=== PATIENT | male | born 1985 | race Caucasian/White ===

== ENCOUNTER → 2018-03-02 | Outpatient (REF) | payer OTHER ==
[2018-03-02 14:07] LABS: INR 1.09; PROTHROMBIN TIME 14.2 SECONDS (12.1-14.4)
[2018-03-02 14:08] LABS: PARTIAL THROMBOPLASTIN TIME 37.6 SECONDS (25.4-37.6)
[2018-03-02 14:14] LABS: REASON FOR REVIEW PLATELET MORPHOLOGY; SLIDE REVIEW Report; SOURCE PERIPHERAL SMEAR
[2018-03-02 14:43] LABS: VITAMIN B12 LEVEL 700 PG/ML (247-911)
[2018-03-03 11:00] LABS: HIV 1&2 SCREEN CENTAUR NEGATIVE (NEGATIVE)
[2018-03-03 11:00] LABS: HEPATITIS C VIRUS ABY INDEX 0.2 INDEX (<0.8)
== END ==
LOC: M LAB REF 13:17
DX: D69.6 Thrombocytopenia, unspecified (principal); R94.5 Abnormal results of liver function studies

== ENCOUNTER → 2018-03-07 | Outpatient (REF) | payer OTHER | LOC: M LAB REF 13:37 | DX: D69.6 Thrombocytopenia, unspecified (principal); R94.5 Abnormal results of liver function studies; R16.0 Hepatomegaly, not elsewhere classified ==

== ENCOUNTER 2019-01-04 11:50 | Inpatient (IN) | payer OTHER ==
[~2019-01-04] VITALS: Ht 170.2 cm; Wt 81.2 kg
[2019-01-04] MEDS: FOLIC ACID 1 MG TAB PO SCH (09:00)
[2019-01-04] MEDS: MULTIVITAMINS/MINERALS THERAP 1 TAB PO SCH (09:00)
[~2019-01-04 11:50] MED LIST: VENTAER INH
[2019-01-04] MEDS ORDERED: ALBU8.5H (12:21)
[2019-01-04] MEDS ORDERED: INCR1INH (12:21)
[2019-01-04] MEDS ORDERED: FOLI1TAB11 (12:21)
[2019-01-04] MEDS ORDERED: SPIR100T3 (12:21)
[2019-01-04] MEDS ORDERED: SPIR-10 (12:21)
[2019-01-04] MEDS ORDERED: FURO40TA2 (12:21)
[2019-01-04] MEDS ORDERED: LACT10SO3 (12:21)
[2019-01-04] MEDS ORDERED: PANT40TA3 (12:21)
[2019-01-04] MEDS ORDERED: GABA-1171 (12:21)
[2019-01-04] MEDS ORDERED: METH4TAB28 (12:21)
[2019-01-04] MEDS ORDERED: LORazepam 2 MG TAB PO PRN ×2 (12:45→15:45)
[2019-01-04 13:04] LABS: VENOUS BASE EXCESS 1.4 (-2.0-2.0); VENOUS HCO3 25.5 MEQ/L (23.0-27.0); VENOUS O2 SATURATION 90.1 % (60.0-80.0); VENOUS PARTIAL PRESSURE CO2 38.9 mmHg (38.0-50.0); VENOUS PARTIAL PRESSURE O2 63.1 mmHg (30.0-50.0); VENOUS PH 7.435 UNITS (7.330-7.430); VENOUS STANDARD HCO3 25.5 MEQ/L; VENOUS TOTAL CO2 26.7 MEQ/L (24.0-28.0)
[2019-01-04 13:13] LABS: BASO % 0.5 % (0.0-1.0); EOS # 0.1 10^3/uL (0.0-0.50); HEMATOCRIT 37.5 % (42.0-52.0); LYMPH # 2.3 10^3/uL (1.5-4.5); LYMPH % 37.8 % (24.0-44.0); MEAN CORPUSCULAR HEMOGLOBIN 35.3 pg (27.0-33.0); MEAN CORPUSCULAR HGB CONC 34.7 g/dl (32.0-36.5); MEAN CORPUSCULAR VOLUME 101.9 fl (80.0-96.0); MONO # 0.7 10^3/uL (0.0-0.8); MONO % 12.1 % (0.0-5.0); NEUTROPHILS # 2.8 10^3/uL (1.8-7.7); NEUTROPHILS % 47.1 % (36.0-66.0); RED BLOOD COUNT 3.68 10^6/uL (4.30-6.10)
[2019-01-04 13:27] LABS: INR 1.74; PROTHROMBIN TIME 20.6 SECONDS (12.1-14.4)
[2019-01-04 13:28] LABS: PARTIAL THROMBOPLASTIN TIME 44.2 SECONDS (25.4-37.6)
[2019-01-04] MEDS ORDERED: SPIR100T3 PO (13:33)
[2019-01-04] MEDS ORDERED: FURO40TA2 PO (13:33)
[2019-01-04] MEDS ORDERED: RA M200C4 PO (13:33)
[2019-01-04] MEDS ORDERED: PANT40TA3 PO (13:33)
[2019-01-04] MEDS ORDERED: GABA-1171 PO (13:33)
[2019-01-04] MEDS ORDERED: PROAAER10 INH (13:33)
[2019-01-04 13:48] LABS: ACETAMINOPHEN LEVEL < 2.0 UG/ML (10.0-30.0); ALBUMIN 1.9 GM/DL (3.2-5.2); ALT/SGPT 27 U/L (12-78); AMYLASE 55 U/L (25-115); BILIRUBIN,DIRECT 3.1 MG/DL (0.0-0.2); BILIRUBIN,TOTAL 4.9 MG/DL (0.2-1.0); BLOOD UREA NITROGEN 3 MG/DL (7-18); CALCIUM LEVEL 7.5 MG/DL (8.5-10.1); CARBON DIOXIDE LEVEL 26 MEQ/L (21-32); CHLORIDE LEVEL 106 MEQ/L (98-107); CREATININE FOR GFR 0.39 MG/DL (0.70-1.30); ETHYL ALCOHOL (ETHANOL) 0.297 % (0.000-0.010); GLOMERULAR FILTRATION RATE > 60.0 (>60); GLUCOSE, FASTING 105 MG/DL (70-100); LIPASE 370 U/L (73-393); POTASSIUM SERUM 3.7 MEQ/L (3.5-5.1); SALICYLATE LEVEL < 1.7 MG/DL (5.0-30.0); SODIUM LEVEL 140 MEQ/L (136-145); TOTAL PROTEIN 7.6 GM/DL (6.4-8.2)
[2019-01-04] MEDS: THIAMINE 100 MG TAB PO SCH ×2 (13:52→21:32)
[2019-01-04 14:03] LABS: PLATELET COUNT, AUTOMATED 78 10^3/uL (150-450)
--- NOTE | 2019-01-04 15:27 | HPEPDOC ---
[facility] Medical History & Physical History and Physical DATE OF ADMISSION 01/04/[address] salbador Sahu FIRE POT OPERATOR Dr. Grullon CHIEF COMPLAINT: Sent to ER by draw machine operator HISTORY OF PRESENT ILLNESS: Patient is a 33-year-old man with a history of easy bruising has undergone extensive outpatient work up to the hematology office for thrombocytopenia. [place] to be secondary thrombocytopenia, related to excessive alcohol abuse and liver disease secondary to this. The patient had vomited ascites and was seen by his draw machine operator yesterday who referred him to the emergency room and suggested a diagnostic paracentesis. The patient was reluctan t present and did go home and was intoxicated drinking alcohol last night. He does admit to significant alcohol intake every day. He does not know the last time he went 3 days without drinking he's been doing so for 7 years. He tells me that his sister also has liver problems but she drinks as well and that his father had liver problems as well and he secondary to cardiac disease. At the time of my exam the patient is intoxicated PAST MEDICAL HISTORY: 1. Secondary thrombocytopenia. 2. Gastroesophageal reflux disease. 3. Asthma. HOME MEDICATIONS: Please see below. ALLERGIES: please see below PAST SURGICAL HISTORY: 1. Colonoscopy which was fairly unremarkable. SOCIAL HISTORY: Lives with: His brother, Employment: Unemployed not in school, Tobacco use: Half a pack for the last 2 years. ETOH: As outlined above significant unable to quantify the last 7 years, Illicit drug use: Denies, Tattoos done unprofessionally: Denies. IV drug use: Denies CODE STATUS: Full code FAMILY HISTORY:Reviewed and noncontributory REVIEW OF SYSTEMS: CONSTITUTIONAL: Denies weight loss in fact weight gain, night sweats, fatigue malaise HEENT: Denies visual changes headache ringing in the ear sore throat. CARDIOVASCULAR: Denies chest pain shortness of breath PND orthopnea, positive for edema. RESPIRATORY: Denies cough as sputum wheeze hemoptysis. GASTROINTESTINAL: Positive for abdominal pain denies changes in his urine nausea vomiting diarrhea. GENITOURINARY: Denies incontinence frequency and dysuria otherwise has been started on diuretic. SKIN: Denies pruritus rash and dryness open wounds. MUSCULOSKELETAL: Denies muscle aches weakness or worsening arthritis. NEUROLOGICAL: Patient denies seizures paresthesias or paralysis gait instability. PSYCHIATRIC: Patient denies anxiety difficulty with concentration and anhedonia and depression energy. But does admit a history of depression ENDOCRINE: Patient denies cold or heat intolerance, changes in appetite, hair loss. HEMATOLOGIC/LYMPHATIC: Positive for easy bruising. PHYSICAL EXAMINATION: VITAL SIGNS: Temperature 98 6, pulse 98, respiratory rate 18, blood pressure 142/79, pulse oximetry 95 % on room air. GENERAL: Pleasant sitting up in bed sleepy difficult to engage in conversation he is visibly intoxicated HEENT: Moist mucous membranes no elevation and CVP, breath is malodorous CARDIOVASCULAR: S1 S2 regular no additional heart sounds appreciated. RESPIRATORY: Clear to auscultation bilaterally. ABDOMINAL: Bowel sounds present abdomen soft and diffusely tender to palpation, positive shifting dullness and fluid wave EXTREMITIES: No clubbing cyanosis, positive for trace edema bilaterally NEUROLOGICAL: Spontaneously moves all 4 extremities cranial 2 through 12 grossly intact no gross focal deficits appreciated PSYCHOLOGICAL: Appropriate LABORATORY DATA: See below. MICROBIOLOGY: Please see below. ASSESSMENT: This is a 33-year-old man with alcoholic liver cirrhosis. .PLAN: 1.Liver cirrhosis: In all likelihood secondary to alcoholism although it is a relatively early onset given his assessment intake over the last 7 years I suspect that this is the etiology. Certainly other etiologies could be entertain ed he does have a sister with liver disease as well and although she isn't a drinker disconcertingly be secondary etiology I will send a broad workup and returned to gastroenterology, as well as complete diagnostic paracentesis as intention. His platelets are both 50 his INR is elevated at 1.7 however he has been drinking I suspect that over the next 24 hours upon recycling his labs and being away from alcohol briefly these may improve. He is oriented and started on Lasix and spironolactone combination 2. Alcohol abuse: Cessation counseling provided with left to monitor him closely for alcohol withdrawal symptoms as he was scoring. We'll provide him with folic acid thiamine and multivitamin 3. Gastroesophageal reflux disease: Continue with PPI 4.Chronic pain: Continue with gabapentin DVT PROPHYLAXIS: Sequentials teds no pharmacological agents in the setting of thrombocytopenia DISPOSITION: Admitted to the medical surgical floor PROGNOSIS: Long-term appears to be quite poor unless he can cease further alcohol intake Vital Signs Vital Signs Date Time Temp Pulse Resp B/P (MAP) Pulse Ox O2 Delivery O2 Flow Rate FiO2 01/04/19 14:19 98 18 95 Room Air 01/04/19 14:00 142/79 (100) 01/04/19 11:51 98.6 Laboratory Data Labs 24H Laboratory Tests 2 01/04/19 12:41: Immature Granulocyte % (Auto) 0.5, White Blood Count 6.0, Red Blood Count 3.68L, Hemoglobin 13.0L, Hematocrit 37.5L, Mean Corpuscular Volume 101.9H, Mean Corpuscular Hemoglobin 35.3H, Mean Corpuscular Hemoglobin Concent 34.7, Red Cell Distribution Width 14.5, Platelet Count 78L, Neutrophils (%) (Auto) 47.1, Lymphocytes (%) (Auto) 37.8, Monocytes (%) (Auto) 12.1H, Eosinophils (%) (Auto) 2.0, Basophils (%) (Auto) 0.5, Neutrophils # (Auto) 2.8, Lymphocytes # (Auto) 2.3, Monocytes # (Auto) 0.7, Eosinophils # (Auto) 0.1, Basophils # (Auto) 0.0, Nucleated Red Blood Cells % (auto) 0.0, Immature Platelet Fraction 2.6, Prothrombin Time 20.6H, Prothromb Time International Ratio 1.74, Activated Part ial Thromboplast Time 44.2H, Blood Gas Bicarbonate Standard 25.5, Venous Blood pH 7.435H, Venous Blood Partial Pressure CO2 38.9, Venous Blood Partial Pressure O2 63.1H, Venous Blood Total Carbon Dioxide 26.7, Venous Blood HCO3 25.5, Venous Blood Oxygen Saturation 90.1H, Venous Blood Base Excess 1.4, Anion Gap 8, Glomerular Filtration Rate > 60.0, Calcium Level 7.5L, Aspartate Amino Transf (AST/SGOT) 83H, Alanine Aminotransferase (ALT/SGPT) 27, Alkaline Phosphatase 194H, Total Bilirubin 4.9H, Direct Bilirubin 3.1H, Ammonia 23, Total Protein 7.6, Albumin 1.9L, Albumin/Globulin Ratio 0.33L, Amylase Level 55, Lipase 370, Thyroid Stimulating Hormone (TSH) 2.920, Salicylates Level < 1.7L, Acetaminophen Level < 2.0L, Ethyl Alcohol Level 0.297H 01/04/19 12:43: Bedside Glucose (Misc Panel) 107H CBC/BMP Laboratory Tests 01/04/19 12:41 Red Blood Count 3.68 L, Mean Corpuscular Volume 101.9 H, Mean Corpuscular Hemoglobin 35.3 H, Mean Corpuscular Hemoglobin Concent 34.7, Red Cell Distribution Width 14.5, Neutrophils (%) (Auto) 47.1, Lymphocytes (%) (Auto) 37.8, Monocytes (%) (Auto) 12.1 H, Eosinophils (%) (Auto) 2.0, Basophils (%) (Auto) 0.5, Neutrophils # (Auto) 2.8, Lymphocytes # (Auto) 2.3, Monocytes # (Auto) 0.7, Eosinophils # (Auto) 0.1, Basophils # (Auto) 0.0 Home Medications Scheduled Furosemide (Furosemide) 40 Mg Tablet, 40 MG PO DAILY Gabapentin (Gabapentin) 100 Mg Capsule, 100 MG PO BID Milk Thistle Seed Extract (Milk Thistle) 200 Mg Capsule, 200 MG PO DAILY Pantoprazole Sodium (Pantoprazole Sodium) 40 Mg Tablet.dr, 40 MG PO DAILY Spironolactone (Spironolactone) 100 Mg Tablet, 100 MG PO DAILY Scheduled PRN Albuterol Sulfate (Proair Hfa) 8.5 Gm Hfa.aer.ad, 2 PUFF INH Q4H PRN for SHORTNESS OF BREATH Allergies Coded Allergies: No Known Allergies (Unverified , 12/18/18) A-FIB/CHADSVASC A-FIB History Current/History of A-Fib/PAF?: No Current Oral Anticoagulant The: JOSE ARMANDO Baldwin MD January 04, 2019 15:27
[2019-01-04 15:37] LABS: AMPHETAMINES LEVEL URINE NEGATIVE (NEGATIVE); BARBITURATES URINE NEGATIVE (NEGATIVE); BENZODIAZEPINES URINE NEGATIVE (NEGATIVE); CANNABINOIDS URINE NEGATIVE (NEGATIVE); COCAINE METABOLITE URINE NEGATIVE (NEGATIVE); METHADONE URINE NEGATIVE (NEGATIVE); OPIATES URINE NEGATIVE (NEGATIVE); PHENCYCLIDINE URINE NEGATIVE (NEGATIVE)
[2019-01-04 16:55] VITALS: BP 137/93
[2019-01-04] MEDS: SPIRONOLACTONE 50 MG TAB PO SCH (17:12)
[2019-01-04] MEDS: FUROSEMIDE 40 MG TAB PO SCH (17:13)
[2019-01-04 17:25] VITALS: BP 137/93
[2019-01-04 17:35] LABS: FERRITIN 513 NG/ML (26-388)
[2019-01-04] MEDS ORDERED: cefTRIAXone SOD 1 GM in D5W MINI-BAG PLUS 50 ML IV SCH (18:00)
[2019-01-04] MEDS ORDERED: THIAMINE 100 MG TAB PO SCH (21:00)
[2019-01-04] MEDS: GABAPENTIN 100 MG CAP PO SCH (21:32)
[2019-01-04] MEDS: LORazepam 1 MG TAB PO SCH (21:33)
[2019-01-04 22:00] VITALS: BP 131/68
[2019-01-05] MEDS: LORazepam 1 MG TAB PO SCH ×3 (05:19→21:11)
[2019-01-05 06:00] VITALS: BP_SYST 133; BP_SYST 135; BP_DIAS 71
[2019-01-05 06:36] LABS: HEMATOCRIT 31.7 % (42.0-52.0); MEAN CORPUSCULAR HGB CONC 34.4 g/dl (32.0-36.5); MEAN CORPUSCULAR VOLUME 101.9 fl (80.0-96.0); RED BLOOD COUNT 3.11 10^6/uL (4.30-6.10); WHITE BLOOD COUNT 4.8 10^3/uL (4.0-10.0)
[2019-01-05 06:42] LABS: PLATELET COUNT, AUTOMATED 64 10^3/uL (150-450)
[2019-01-05 06:44] LABS: HEMOGLOBIN 10.9 g/dl (13.5-17.5)
[2019-01-05 06:55] LABS: ALBUMIN 1.7 GM/DL (3.2-5.2); ALT/SGPT 25 U/L (12-78); BILIRUBIN,TOTAL 4.2 MG/DL (0.2-1.0); BLOOD UREA NITROGEN 3 MG/DL (7-18); CARBON DIOXIDE LEVEL 27 MEQ/L (21-32); CHLORIDE LEVEL 109 MEQ/L (98-107); CREATININE FOR GFR 0.38 MG/DL (0.70-1.30); GLOMERULAR FILTRATION RATE > 60.0 (>60); GLUCOSE, FASTING 89 MG/DL (70-100); POTASSIUM SERUM 3.8 MEQ/L (3.5-5.1); SODIUM LEVEL 141 MEQ/L (136-145); TOTAL PROTEIN 6.3 GM/DL (6.4-8.2)
[2019-01-05 08:21] LABS: INR 1.89
[2019-01-05] MEDS ORDERED: FOLIC ACID 1 MG TAB PO SCH (09:00)
[2019-01-05] MEDS ORDERED: MULTIVITAMINS/MINERALS THERAP 1 TAB PO SCH (09:00)
[2019-01-05] MEDS: PANTOPRAZOLE 40MG TAB (PROTONIX) PO SCH (11:04)
[2019-01-05] MEDS: THIAMINE 100 MG TAB PO SCH ×2 (11:04→21:11)
[2019-01-05] MEDS: MULTIVITAMINS/MINERALS THERAP 1 TAB PO SCH (11:04)
[2019-01-05] MEDS: GABAPENTIN 100 MG CAP PO SCH ×2 (11:04→21:11)
[2019-01-05] MEDS: FUROSEMIDE 40 MG TAB PO SCH (11:04)
[2019-01-05] MEDS: SPIRONOLACTONE 50 MG TAB PO SCH (11:04)
[2019-01-05] MEDS: FOLIC ACID 1 MG TAB PO SCH (11:05)
[2019-01-05 14:00] VITALS: BP 142/81
--- NOTE | 2019-01-05 14:13 | IPNPDOC ---
Date Seen The patient was seen on 01/05/19. Progress Note SUBJECTIVE: Patient tells me that his abdomen is feeling better today, it is not as painful he denies anxiety palpitations diaphoresis otherwise patient denies chest pain, shortness, breath, nausea, vomiting, fevers, chills OBJECTIVE PHYSICAL EXAMINATION: VITAL SIGNS: Please see below. GENERAL: Pleasant young man laying in bed awake alert oriented speaking in complete sentences no acute distress HEENT: Moist mucous membranes no elevation and CVP CARDIOVASCULAR: S1 S2 regular no additional heart sounds appreciated. RESPIRATORY: Clear to auscultation bilaterally. ABDOMINAL: Bowel sounds present abdomen soft and nontender, ascites shifting dullness fluid wave early [place] EXTREMITIES: No clubbing, cyanosis, trace edema NEUROLOGICAL: Spontaneously moves all 4 extremities cranial 2 through 12 grossly intact no gross focal deficits appreciated PSYCHOLOGICAL: Appropriate LABORATORY DATA, MICROBIOLOGY: Please see below. IMAGING STUDIES: Liver ultrasound pending DVT prophylaxis ordered: Sammy Segundo no pharmacological agents in the setting of thrombocytopenia ASSESSMENT: This is a 33-year-old man with alcoholic liver cirrhosis. .PLAN: 1.Liver cirrhosis: In all likelihood secondary to alcoholism. There is some concern for SBP have her symptoms do appear to be improved today we're hoping to complete a diagnostic paracentesis however his INR remains elevated this ralph pickering I did consent for blood products is aware of risks and benefits with a lengthy conversation discussing it which was witnessed for missing placement chart. USING 2 units of FFP and recheck an INR and see if he is appropriate for paracentesis at that time. His platelets are appropriate, I have discussed with gastroenterology and for the time being we are holding off on empiric and biotics appears to be quite stable and somewhat improved today 2. Alcohol abuse: Cessation counseling provided we will have to monitor him closely for alcohol withdrawal symptoms and utilize CIWA scoring. We'll provide him with folic acid thiamine and multivitamin as well as low-dose Ativan 3. Gastroesophageal reflux disease: Continue with PPI 4.Chronic pain: Continue with gabapentin DISPOSITION: Admitted to the medical surgical floor, pending paracentesis and clinical improvement PROGNOSIS: Long-term appears to be quite poor unless he can cease further alcohol intake A-FIB/CHADSVASC A-FIB History Current/History of A-Fib/PAF?: No Current Oral Anticoagulant The: No VS, I&O, 24H, Fishbone Vital Signs/I&O Vital Signs Date Time Temp Pulse Resp B/P (MAP) Pulse Ox O2 Delivery O2 Flow Rate FiO2 01/05/19 06:00 101 133/71 01/05/19 06:00 99.1 20 93 01/04/19 15:49 Room Air I&O- Last 24 Hours up to 6 AM 01/05/19 06:00 Intake Total 420 ml Output Total 1800 ml Balance -1380 ml Laboratory Data 24H LABS Laboratory Tests 2 01/05/19 06:12: Nucleated Red Blood Cells % (auto) 0.0, Anion Gap 5L, Glomerular Filtration Rate > 60.0, Blood Urea Nitrogen 3L, Creatinine 0.38L, Sodium Level 141, Potassium Level 3.8, Chloride Level 109H, Carbon Dioxide Level 27, Calcium Level 8.0L, Aspartate Amino Transf (AST/SGOT) 68H, Alanine Aminotransferase (ALT/SGPT) 25, Alkaline Phosphatase 154H, Total Bilirubin 4.2H, Total Protein 6.3L, Albumin 1.7L, Albumin/Globulin Ratio 0.37L 01/05/19 07:57: Prothrombin Time 22.0H, Prothromb Time International Ratio 1.89 CBC/BMP Laboratory Tests 01/05/19 06:12 Red Blood Count 3.11 L, Mean Corpuscular Volume 101.9 H, Mean Corpuscular Hemoglobin 35.0 H, Mean Corpuscular Hemoglobin Concent 34.4, Red Cell Distribution Width 14.6 H, Calcium Level 8.0 L, Aspartate Amino Transf (AST/SGOT) 68 H, Alanine Aminotransferase (ALT/SGPT) 25, Alkaline Phosphatase 154 H, Total Bilirubin 4.2 H, Total Protein 6.3 L, Albumin 1.7 L JOSE ARMANDO LEES MD January 05, 2019 14:13
--- NOTE | 2019-01-05 14:26 | REP ---
Complete abdominal sonography: Visceral Doppler assessment: History: Hepatitis. Morphologic findings: Scanning through the right upper quadrant of the abdomen demonstrates a contracted appearing somewhat thick-walled gallbladder without visible stone or polyp. There is ascites which is associated with spurious gallbladder wall thickening. Common bile duct is normal measuring 4.2 cm in greatest diameter. Coarse liver contour and parenchyma is seen consistent with cirrhosis. Recannulized umbilical vein is observed. No hepatic mass lesion is seen. Limited views of the pancreas show no abnormality. The spleen measures 14.9 cm in greatest diameter and is considered enlarged. No focal splenic lesion is seen. There is ascites and a left pleural effusion. The ascites is felt to be mild. Normal caliber aorta is seen. Renal cortical echogenicity pattern is normal and contours are smooth bilaterally. Right kidney measures 13.7 x 5.9 x 4.9 cm. Left renal dimensions are 12.6 x 5.9 x 6.9 cm. No hydronephrosis seen. Impression: Mild ascites. Findings consistent with cirrhosis. Mild splenomegaly. Contracted appearing thick-walled gallbladder. Otherwise negative. Visceral portal Doppler assessment: The main portal vein measures 12.6 mm in diameter. It demonstrates reversal of flow from the liver towards the justin splenic venous confluence. This is compatible with cirrhosis and portal hypertension. Recannulated umbilical vein is seen. The hepatic veins show portalization of flow pattern. Venous flow velocities in the splenic vein near its hilus of 36 cm/sec. As the splenic vein could not be seen closer to the justin splenic venous confluence technically. Portal Doppler venous flow velocity is 36.8 cm/sec. Hepatic arterial flow velocity is 0.7. Impression: Findings consistent with cirrhosis and portal hypertension. There is reverse flow in the main portal vein. The umbilical vein is recannulated. There is ascites. There is mild splenomegaly. Electronically Signed by Jono Lopez MD 01/05/2019 06:31 P
[2019-01-05] MEDS ORDERED: IPRATROPIUM 0.5MG/ALBUTEROL 2.5MG INH SOL UD 3ML (DUONEB)(J7620) NEB PRN (15:30)
[2019-01-05 17:39] LABS: APPEARANCE, BODY FLUID TURBID (CLEAR); ASCITES FL COLOR YELLOW (COLORLESS); SOURCE, BODY FLUID ASCITES; SPEC. GRAVITY BODY FLUIDS 1.012 (NOT ESTABLISHED)
[2019-01-05 18:15] LABS: SOURCE, BODY FLUID ALBUMIN ASCITES; SOURCE, BODY FLUID GLUCOSE ASCITES; SOURCE, BODY FLUID TOT PROTEIN ASCITES; TOTAL PROTEIN, BODY FLUID 1.2 G/DL (NOT ESTABLISHED)
[2019-01-05 21:00] VITALS: BP 133/70
[2019-01-05 22:00] VITALS: BP 133/70
[2019-01-05 22:34] LABS: INR 1.68; PROTHROMBIN TIME 20.1 SECONDS (12.1-14.4)
[2019-01-06] MEDS ORDERED: NICOTINE 21MG/24HR 1 EA TRANSDERMAL TD ONE (01:00)
[2019-01-06] MEDS ORDERED: IBUPROFEN 400 MG TAB PO ONE (02:15)
[2019-01-06 05:00] VITALS: BP 132/69
[2019-01-06] MEDS: LORazepam 1 MG TAB PO SCH (05:27)
[2019-01-06 06:00] VITALS: BP 132/69
[2019-01-06 06:02] LABS: HEMATOCRIT 32.5 % (42.0-52.0); HEMOGLOBIN 11.1 g/dl (13.5-17.5); MEAN CORPUSCULAR HEMOGLOBIN 34.8 pg (27.0-33.0); MEAN CORPUSCULAR HGB CONC 34.2 g/dl (32.0-36.5); MEAN CORPUSCULAR VOLUME 101.9 fl (80.0-96.0); RED BLOOD COUNT 3.19 10^6/uL (4.30-6.10); WHITE BLOOD COUNT 4.4 10^3/uL (4.0-10.0)
[2019-01-06 06:13] LABS: PLATELET COUNT, AUTOMATED 59 10^3/uL (150-450)
[2019-01-06 06:32] LABS: ALBUMIN 1.8 GM/DL (3.2-5.2); ALT/SGPT 21 U/L (12-78); BILIRUBIN,TOTAL 5.5 MG/DL (0.2-1.0); BLOOD UREA NITROGEN 6 MG/DL (7-18); CALCIUM LEVEL 7.7 MG/DL (8.5-10.1); CARBON DIOXIDE LEVEL 26 MEQ/L (21-32); CHLORIDE LEVEL 106 MEQ/L (98-107); CREATININE FOR GFR 0.47 MG/DL (0.70-1.30); GLOMERULAR FILTRATION RATE > 60.0 (>60); GLUCOSE, FASTING 104 MG/DL (70-100); POTASSIUM SERUM 3.5 MEQ/L (3.5-5.1); SODIUM LEVEL 139 MEQ/L (136-145); TOTAL PROTEIN 6.9 GM/DL (6.4-8.2)
[2019-01-06] MEDS: THIAMINE 100 MG TAB PO SCH (08:37)
[2019-01-06] MEDS: FUROSEMIDE 40 MG TAB PO SCH (08:37)
[2019-01-06] MEDS: GABAPENTIN 100 MG CAP PO SCH (08:37)
[2019-01-06] MEDS: FOLIC ACID 1 MG TAB PO SCH (08:37)
[2019-01-06] MEDS: PANTOPRAZOLE 40MG TAB (PROTONIX) PO SCH (08:37)
[2019-01-06] MEDS: MULTIVITAMINS/MINERALS THERAP 1 TAB PO SCH (08:37)
[2019-01-06] MEDS: SPIRONOLACTONE 50 MG TAB PO SCH (08:38)
[2019-01-06] MEDS ORDERED: NICOTINE 21MG/24HR 1 EA TRANSDERMAL TD SCH (09:00)
[2019-01-06] MEDS ORDERED: VITMTA PO (10:04)
[2019-01-06] MEDS ORDERED: THIA100TA PO (10:04)
[2019-01-06] MEDS ORDERED: NICO21PAT TD (10:04)
[2019-01-06] MEDS ORDERED: ATIV1TAB7 PO (10:04)
[2019-01-06] MEDS ORDERED: FOLI1TAB11 PO (10:04)
--- NOTE | 2019-01-06 10:34 | DS.PDOC ---
Discharge Summary General Date of Admission January 04, 2019 at 15:23 Date of Discharge 01/06/2019 Discharge Summary DATE OF DISCHARGE: 01/06/2019 DISCHARGE DIAGNOSIS: Alcoholic cirrhosis hepatitis with ascites SECONDARY DIAGNOSIS: 1.Alcohol abuse 2. Gastroesophageal reflux disease 3. Liver cirrhosis 4. Chronic pain PROCEDURES PERFORMED DURING STAY: Paracentesis. CONSULTANTS: Dr. Meléndez: Gastroenterology COMPLICATIONS/CHIEF COMPLAINT: Abdominal pain. HISTORY OF PRESENT ILLNESS: Patient is a 33-year-old man with a history of easy bruising has undergone extensive outpatient work up to the hematology office for thrombocytopenia. [place] to be secondary thrombocytopenia, related to excessive alcohol abuse and liver disease secondary to this. The patient had vomited ascites and was seen by his hearing dog trainer yesterday who referred him to the emergency room and suggested a diagnostic paracentesis. The patient was reluctant present and did go home and was intoxicated drinking alcohol last night. He does admit to significant alcohol intake every day. He does not know the last time he went 3 days without drinking he's been doing so for 7 years. He tells me that his sister also has liver problems but she drinks as well and that his father had liver problems as well and he secondary to cardiac disease. At the time of my exam the patient is intoxicated. HOSPITAL COURSE: Patient was admitted to the hospitalist service was provided with 2 units of FFP consent for blood products as obtained prior to this. He tolerated his transfusion well he did undergo a diagnostic paracentesis which was not suggestive of SBP however with fluid removal his abdominal symptoms did completely resolve. At this time is completely asymptomatic. He was monitored closely for evidence of alcohol withdrawal and delirium tremens he did not exhibit any such symptoms. He was provided with standing Ativan every 8 hours which was of great benefit to him and will be discharged with this as well. DISCHARGE MEDICATIONS: Please see below. ALLERGIES: Please see below. SUBJECTIVE: Patient tells me that he is feeling like a new man he has no complaints of abdominal pain and would like to go home today otherwise patient denies chest pain, shortness, breath, nausea, vomiting, fevers, chills OBJECTIVE PHYSICAL EXAMINATION: VITAL SIGNS: Please see below. GENERAL: Pleasant young man sitting up in bed awake alert oriented speaking in complete sentences no acute distress HEENT: Moist mucous membranes no elevation and CVP CARDIOVASCULAR: S1 S2 regular no additional heart sounds appreciated. RESPIRATORY: Clear to auscultation bilaterally. ABDOMINAL: Bowel sounds present abdomen soft and nontender, less distended still has some evidence of Midazolam EXTREMITIES: No clubbing, cyanosis, edema NEUROLOGICAL: Spontaneously moves all 4 extremities cranial 2 through 12 grossly intact, no gross focal deficits appreciated PSYCHOLOGICAL: Appropriate LABORATORY DATA, MICROBIOLOGY: Please see below. IMAGING STUDIES: Liver ultrasound:Mild ascites. Findings consistent with cirrhosis. Mild splenomegaly. Contracted appearing thick-walled gallbladder. Otherwise negative. Liver Doppler:Findings consistent with cirrhosis and portal hypertension. There is reverse flow in the main portal vein. The umbilical vein is recannulated. There is ascites. There is mild splenomegaly. DVT prophylaxis ordered: Sequentials and teds no pharmacological agents in the setting of thrombocytopenia ASSESSMENT: This is a 33-year-old man with alcoholic liver cirrhosis. .PLAN: 1.Liver cirrhosis: In all likelihood secondary to alcoholism. Diagnostic paracentesis has been negative for SBP his symptoms do appear to be improved today following paracentesis, I suspect his significant pain was secondary to acute alcoholic hepatitis and ascites. Since hospitalized she has been away from alcohol for greater than 24 hours and he is had some therapeutic nature to his paracentesis as well which is suspected benefit him greatly. He is at his function at baseline he is improved from the time of presentation 2. Alcohol abuse: Cessation counseling provided. The patient and I did have a fairly david discussion this morning I did inform him that if he continues to drink as has been the recent past he is likely going to drink himself to . Upon his presentation his meld score was 19 indicating a 22% 90 day mortality rate. We did monitor him closely for alcohol withdrawal symptoms and utilize CIWA scoring. He has not had significant alcohol withdrawal symptoms he has been on standing Ativan I will discharge him home with when necessary Ativan to help him with his withdrawal. We'll provide him with folic acid thiamine and multivitamin. 3. Gastroesophageal reflux disease: Continue with PPI 4.Chronic pain: Continue with gabapentin DISPOSITION: Discharged home FOLLOW UP: He is follow-up with PCP in 7 days follow-up with GI within 1 month PROGNOSIS: Long-term appears to be quite poor unless he can cease further alcohol intake ACTIVITY: As prior to admission. DIET: 2 g sodium diet DISCHARGE CONDITION: Improved and Stable. TIME SPENT ON DISCHARGE: 50 minutes Vital Signs/I&Os Vital Signs Date Time Temp Pulse Resp B/P (MAP) Pulse Ox O2 Delivery O2 Flow Rate FiO2 5/18/19 06:00 98.6 99 16 132/69 (90) 96 01/04/19 15:49 Room Air I&O- Last 24 Hours up to 6 AM 01/06/19 06:00 Intake Total 290 ml Output Total 1325 ml Balance -1035 ml Laboratory Data Labs 24H Laboratory Tests 2 01/05/19 17:05: Body Fluid Source ASCITES, Body Fluid Color YELLOW, Body Fluid Appearance TURBID, Body Fluid Specific [place] 1.012, Body Fluid WBC (Auto) 152H, Body Fluid RBC (Auto) < 2, Body Fluid Mononuclear Cells % Auto 94.1H, Fluid Polymorphonuclear Cell % Auto 5.9H, Body Fluid Glucose Source ASCITES, Body Fluid Glucose 91, Body Fluid Protein Source ASCITES, Body Fluid Total Protein 1.2, Body Fluid Albumin Source ASCITES, Body Fluid Albumin 0.4 01/05/19 22:16: Prothrombin Time 20.1H, Prothromb Time International Ratio 1.68 01/06/19 05:04: Nucleated Red Blood Cells % (auto) 0.0, Immature Platelet Fraction 3.1, Anion Gap 7L, Glomerular Filtration Rate > 60.0, Blood Urea Nitrogen 6#L, Creatinine 0.47L, Sodium Level 139, Potassium Level 3.5, Chloride Level 106, Carbon Dioxide Level 26, Calcium Level 7.7L, Aspartate Amino Transf (AST/SGOT) 60H, Alanine Aminotransferase (ALT/SGPT) 21, Alkaline Phosphatase 155H, Total Bilirubin 5.5H, Total Protein 6.9, Albumin 1.8L, Albumin/Globulin Ratio 0.35L CBC/BMP Laboratory Tests 01/06/19 05:04 Red Blood Count 3.19 L, Mean Corpuscular Volume 101.9 H, Mean Corpuscular Hemoglobin 34.8 H, Mean Corpuscular Hemoglobin Concent 34.2, Red Cell Distri bution Width 14.3, Calcium Level 7.7 L, Aspartate Amino Transf (AST/SGOT) 60 H, Alanine Aminotransferase (ALT/SGPT) 21, Alkaline Phosphatase 155 H, Total Bilirubin 5.5 H, Total Protein 6.9, Albumin 1.8 L Microbiology Microbiology 01/05/19 Gram Stain - Final, Resulted 01/05/19 Body Fluid Culture, Resulted Pending Discharge Medications Scheduled Folic Acid (Folic Acid) 1 Mg Tablet, 1 MG PO DAILY Furosemide (Furosemide) 40 Mg Tablet, 40 MG PO DAILY, (Reported) Gabapentin (Gabapentin) 100 Mg Capsule, 100 MG PO BID, (Reported) Lorazepam (Ativan) 1 Mg Tablet, 1 MG PO Q8H Milk Thistle Seed Extract (Milk Thistle) 200 Mg Capsule, 200 MG PO DAILY, (Reported) Multivitamins (Thera M Plus Tablet) 1 Each Tablet, 1 TAB PO DAILY Nicotine (Nicotine Patch) 21 Mg Patch.td24, 1 PATCH TD DAILY Pantoprazole Sodium (Pantoprazole Sodium) 40 Mg Tablet.dr, 40 MG PO DAILY, (Reported) Spironolactone (Spironolactone) 100 Mg Tablet, 100 MG PO DAILY, (Reported) Thiamine Hcl (Vitamin B-1) 100 Mg Tablet, 100 MG PO BID Scheduled PRN Albuterol Sulfate (Proair Hfa) 8.5 Gm Hfa.aer.ad, 2 PUFF INH Q4H PRN for SHORTNESS OF BREATH, (Reported) Allergies Coded Allergies: No Known Allergies (Unverified , 12/18/18) JOSE ARMANDO LEES MD January 06, 2019 10:34
[2019-01-07 00:06] LABS: ANTI-MITOCHONDRIAL ANTIBODY <20.0 Units (0.0-20.0); ANTINUCLEAR ANTIBODIES DIRECT Negative (Negative); CERULOPLASMIN 15.6 mg/dL (16.0-31.0)
--- NOTE | 2019-01-08 07:51 | REP ---
Ultrasound-guided paracentesis The procedure was performed by DEYANIRA De La Cruz, under the direct supervision of Dr. Lopez. The risks and benefits of the procedure were explained to the patient and informed consent was obtained both verbally and written. Directly prior to the start of the procedure, a formal timeout was completed in the procedure room. Under ultrasound guidance, the largest pocket of fluid in the right flank was localized and skin was marked. The skin was then prepped and draped in a sterile fashion. 10 ml of 1% lidocaine was used as a local anesthetic. Using ultrasound guidance, an 8-[place] multiphase side-hole catheter was inserted using trocar technique. 2,000 mL of cloudy yellow colored fluid was withdrawn and discarded. The patient tolerated the procedure well and there were no immediate complications. After the appropriate monitored convalescence the patient was discharged from the department. Reviewed by DEYANIRA Grier 01/05/2019 06:17 P Electronically Signed by Jono Lopez MD 01/05/2019 06:36 P
== END 2019-01-06 12:27 | disposition home or self-care (01) | DRG 280 ==
LOC: M ED 11:50 → M ED INP 15:23 → M MSPAV 16:45
PROVIDERS: ADMIT Internal Medicine; ATTEND Internal Medicine
PROC: 0W9G3ZZ Drainage of Peritoneal Cavity, Percutaneous Approach (ICD-10-PCS; principal; 2019-01-06)
DX: K70.31 Alcoholic cirrhosis of liver with ascites (principal); D69.59 Other secondary thrombocytopenia; K70.11 Alcoholic hepatitis with ascites; K21.9 Gastro-esophageal reflux disease without esophagitis; G89.29 Other chronic pain; Z79.899 Other long term (current) drug therapy; J45.909 Unspecified asthma, uncomplicated; F17.200 Nicotine dependence, unspecified, uncomplicated

== ENCOUNTER 2019-01-24 11:19 | Emergency (ER) | payer OTHER ==
[~2019-01-24] VITALS: Ht 170.2 cm; Wt 75.9 kg
[~2019-01-24 11:19] MED LIST changes: +ALBU8.5H; +ATIV1TAB7 PO; +FOLI1TAB11; +FOLI1TAB11 PO; +FURO40TA2; +FURO40TA2 PO; +GABA-1171; +GABA-1171 PO; +INCR1INH; +LACT10SO3; +METH4TAB28; +NICO21PAT TD; +PANT40TA3; +PANT40TA3 PO; +PROAAER10 INH; +RA M200C4 PO; +SPIR-10; +SPIR100T3; +SPIR100T3 PO; +THIA100TA PO; +VITMTA PO
[2019-01-24 11:20] VITALS: BP 125/71
[2019-01-24 13:55] LABS: BASO % 0.7 % (0.0-1.0); EOS # 0.1 10^3/uL (0.0-0.50); EOS % 2.3 % (0.0-3.0); HEMATOCRIT 35.9 % (42.0-52.0); HEMOGLOBIN 12.4 g/dl (13.5-17.5); LYMPH # 1.4 10^3/uL (1.5-4.5); LYMPH % 33.2 % (24.0-44.0); MEAN CORPUSCULAR HEMOGLOBIN 35.4 pg (27.0-33.0); MEAN CORPUSCULAR HGB CONC 34.5 g/dl (32.0-36.5); MEAN CORPUSCULAR VOLUME 102.6 fl (80.0-96.0); MONO # 0.4 10^3/uL (0.0-0.8); MONO % 8.4 % (0.0-5.0); NEUTROPHILS # 2.4 10^3/uL (1.8-7.7); NEUTROPHILS % 54.9 % (36.0-66.0); WHITE BLOOD COUNT 4.3 10^3/uL (4.0-10.0)
[2019-01-24 13:57] LABS: PLATELET COUNT, AUTOMATED 45 10^3/uL (150-450)
[2019-01-24 14:09] LABS: INR 1.66; PROTHROMBIN TIME 19.9 SECONDS (12.1-14.4)
[2019-01-24 14:10] LABS: PARTIAL THROMBOPLASTIN TIME 42.2 SECONDS (25.4-37.6)
[2019-01-24 14:32] LABS: ALBUMIN 2.1 GM/DL (3.2-5.2); ALT/SGPT 40 U/L (12-78); AMYLASE 67 U/L (25-115); BILIRUBIN,DIRECT 2.4 MG/DL (0.0-0.2); BILIRUBIN,TOTAL 3.5 MG/DL (0.2-1.0); BLOOD UREA NITROGEN 2 MG/DL (7-18); CALCIUM LEVEL 7.6 MG/DL (8.5-10.1); CARBON DIOXIDE LEVEL 26 MEQ/L (21-32); CHLORIDE LEVEL 110 MEQ/L (98-107); CREATININE FOR GFR 0.44 MG/DL (0.70-1.30); GLOMERULAR FILTRATION RATE > 60.0 (>60); GLUCOSE, FASTING 94 MG/DL (70-100); LIPASE 492 U/L (73-393); POTASSIUM SERUM 3.8 MEQ/L (3.5-5.1); SODIUM LEVEL 145 MEQ/L (136-145); TOTAL PROTEIN 7.6 GM/DL (6.4-8.2)
[2019-01-24] MEDS ORDERED: LASI40TA9 PO (15:53)
[2019-01-24] MEDS ORDERED: SPIR100T3 PO (15:53)
--- NOTE | 2019-01-24 16:10 | REP ---
LIMITED ABDOMINAL ULTRASOUND: Limited abdominal ultrasound was performed to evaluate for ascites. There is mild to moderate diffuse ascites primarily located in the right upper quadrant. Electronically Signed by Clay Ricks MD 01/25/2019 09:16 A
== END 2019-01-24 16:06 | disposition home or self-care (01) ==
LOC: M ED 11:19
DX: K70.31 Alcoholic cirrhosis of liver with ascites (principal); Z79.899 Other long term (current) drug therapy; F17.210 Nicotine dependence, cigarettes, uncomplicated

== ENCOUNTER → 2019-01-30 | Outpatient (CLI) | payer OTHER ==
[~2019-01-30] MED LIST changes: +LASI40TA9 PO
[2019-01-30 13:09] LABS: BASO % 0.7 % (0.0-1.0); EOS # 0.1 10^3/uL (0.0-0.50); EOS % 1.4 % (0.0-3.0); HEMATOCRIT 39.2 % (42.0-52.0); HEMOGLOBIN 13.1 g/dl (13.5-17.5); LYMPH # 1.4 10^3/uL (1.5-4.5); LYMPH % 31.8 % (24.0-44.0); MEAN CORPUSCULAR HEMOGLOBIN 35.1 pg (27.0-33.0); MEAN CORPUSCULAR HGB CONC 33.4 g/dl (32.0-36.5); MEAN CORPUSCULAR VOLUME 105.1 fl (80.0-96.0); MONO # 0.7 10^3/uL (0.0-0.8); MONO % 17.1 % (0.0-5.0); NEUTROPHILS # 2.1 10^3/uL (1.8-7.7); NEUTROPHILS % 48.5 % (36.0-66.0); RED BLOOD COUNT 3.73 10^6/uL (4.30-6.10); WHITE BLOOD COUNT 4.3 10^3/uL (4.0-10.0)
[2019-01-30 13:12] LABS: PLATELET COUNT, AUTOMATED 51 10^3/uL (150-450)
[2019-01-30 13:16] LABS: INR 1.72; PROTHROMBIN TIME 20.5 SECONDS (12.1-14.4)
[2019-01-30 13:17] LABS: PARTIAL THROMBOPLASTIN TIME 41.6 SECONDS (25.4-37.6)
[2019-01-30 13:55] LABS: AMYLASE 69 U/L (25-115); LIPASE 508 U/L (73-393)
== END ==
LOC: M LAB 11:28
PROVIDERS: ATTEND Internal Medicine Gastroenterology
DX: R10.84 Generalized abdominal pain (principal)

== ENCOUNTER → 2019-02-02 | Outpatient (REF) | payer OTHER | LOC: M LAB REF 10:33 | PROVIDERS: ATTEND Internal Medicine Gastroenterology | DX: R10.84 Generalized abdominal pain (principal) ==

== ENCOUNTER → 2019-02-12 | Day surgery (SDC) | payer OTHER ==
[~2019-02-12] VITALS: Ht 170.2 cm; Wt 74.8 kg
[~2019-02-12] MED LIST changes: +LIDOCAINE 2% INJ 100 MG/5 ML SDV (FOR ANES.) As Ordered ONE; +NS 1,000 ML IV ONE; +PROPOFOL 200 MG/20 ML VIAL As Ordered ONE
[2019-02-12 13:45] VITALS: BP 129/72
== END | disposition home or self-care (01) ==
LOC: M OPP 13:22
PROVIDERS: ATTEND Internal Medicine Gastroenterology
DX: R10.9 Unspecified abdominal pain (principal); Z53.8 Procedure and treatment not carried out for other reasons

== ENCOUNTER 2019-05-15 23:31 | Emergency (ER) | payer OTHER ==
[~2019-05-15] VITALS: Ht 170.2 cm; Wt 75.0 kg
[~2019-05-15 23:31] MED LIST changes: -LIDOCAINE 2% INJ 100 MG/5 ML SDV (FOR ANES.) As Ordered ONE; -NS 1,000 ML IV ONE; -PROPOFOL 200 MG/20 ML VIAL As Ordered ONE
[2019-05-16] MEDS ORDERED: hydrOXYzine 50 MG TAB PO STA (07:52)
[2019-05-16] MEDS ORDERED: hydrOXYzine 50 MG TAB As Ordered ONE (07:55)
[2019-05-16] MEDS ORDERED: LORazepam 0.5 MG TAB PO STA (09:55)
[2019-05-16] MEDS ORDERED: THIAMINE 100 MG TAB PO ONE (10:00)
[2019-05-16] MEDS ORDERED: FOLIC ACID 1 MG TAB PO ONE (10:00)
[2019-05-16] MEDS ORDERED: PANTOPRAZOLE 40MG TAB (PROTONIX) PO ONE (10:00)
[2019-05-16] MEDS ORDERED: MULTIVITAMINS/MINERALS THERAP 1 TAB PO ONE (10:00)
[2019-05-16] MEDS ORDERED: OXAZEPAM 15 MG CAP PO ONE (11:15)
[2019-05-16 12:10] VITALS: BP 164/85
== END 2019-05-16 12:20 ==
LOC: M ED 23:31
DX: R45.851 Suicidal ideations (principal); K74.60 Unspecified cirrhosis of liver; F10.10 Alcohol abuse, uncomplicated; Z79.51 Long term (current) use of inhaled steroids

== ENCOUNTER → 2020-04-24 | Outpatient (REF) | payer OTHER ==
[~2020-04-24] MED LIST changes: -METH4TAB28; +METH4TAB8; +PANT40TA29; +PANT40TA29 PO; -PANT40TA3; -PANT40TA3 PO
[2020-04-24 18:33] LABS: BASO # 0.1 10^3/uL (0.0-0.2); BASO % 0.8 % (0.0-1.0); EOS # 0.1 10^3/uL (0.0-0.5); EOS % 1.5 % (0.0-3.0); HEMATOCRIT 39.7 % (42.0-52.0); HEMOGLOBIN 13.2 g/dl (13.5-17.5); LYMPH # 1.6 10^3/uL (1.5-5.0); LYMPH % 26.7 % (24.0-44.0); MEAN CORPUSCULAR HGB CONC 33.2 g/dl (32.0-36.5); MEAN CORPUSCULAR VOLUME 84.1 fl (80.0-96.0); MONO # 1.1 10^3/uL (0.0-0.8); MONO % 17.3 % (0.0-5.0); NEUTROPHILS # 3.2 10^3/uL (1.5-8.5); NEUTROPHILS % 53.4 % (36.0-66.0); RED BLOOD COUNT 4.72 10^6/uL (4.30-6.10); WHITE BLOOD COUNT 6.1 10^3/uL (4.0-10.0)
[2020-04-24 18:52] LABS: ALBUMIN 3.7 GM/DL (3.2-5.2); ALT/SGPT 96 U/L (12-78); BILIRUBIN,TOTAL 4.5 MG/DL (0.2-1.0); BLOOD UREA NITROGEN 6 MG/DL (7-18); CALCIUM LEVEL 8.6 MG/DL (8.5-10.1); CARBON DIOXIDE LEVEL 25 MEQ/L (21-32); CHLORIDE LEVEL 107 MEQ/L (98-107); GLOMERULAR FILTRATION RATE > 60.0 (>60); GLUCOSE, FASTING 80 MG/DL (70-100); POTASSIUM SERUM 3.6 MEQ/L (3.5-5.1); SODIUM LEVEL 138 MEQ/L (136-145); TOTAL PROTEIN 8.3 GM/DL (6.4-8.2)
[2020-04-24 19:18] LABS: PLATELET COUNT, AUTOMATED 59 10^3/uL (150-450)
== END ==
LOC: M LABDRWAD 15:55
PROVIDERS: ATTEND Family Medicine
DX: K76.9 Liver disease, unspecified (principal); D69.6 Thrombocytopenia, unspecified

== ENCOUNTER → 2020-10-14 | Outpatient (CLI) | payer OTHER ==
--- NOTE | 2020-10-14 14:45 | REP ---
INDICATION: PAIN. COMPARISON: None. TECHNIQUE: Six views. FINDINGS: There is straightening of the normal cervical lordosis. Cervical vertebral body heights are preserved. There is mild discogenic spurring anteriorly at C4-5 and C5-6. Disc spaces are maintained. Swimmer's lateral view shows no additional abnormality. On the AP view, there is mild dextroconvex curvature. Open mouth odontoid view is unremarkable. No bony destructive lesion is seen. IMPRESSION: Mild degenerative discogenic spurring C4-5 and C5-6. Straightening. Otherwise negative. <Electronically signed by Zuhair Lopez > 10/14/20 [id number]
--- NOTE | 2020-10-14 14:47 | REP ---
INDICATION: PAIN. COMPARISON: None. TECHNIQUE: Four views of the right shoulder are presented. FINDINGS: The right glenohumeral and acromioclavicular joints are normally aligned. Periarticular soft tissues are unremarkable. No evidence of arthropathy. Visualized right rib cage is unremarkable. IMPRESSION: Negative right shoulder radiographs. <Electronically signed by Zuhair Lopez > 10/14/20 2019
== END ==
LOC: M SOG 10:48
PROVIDERS: ATTEND Orthopaedic Surgery Sports Medicine
DX: M54.12 Radiculopathy, cervical region (principal); M75.41 Impingement syndrome of right shoulder; M25.78 Osteophyte, vertebrae

== ENCOUNTER → 2020-11-21 | Outpatient (CLI) | payer OTHER ==
[~2020-11-21] MED LIST changes: +TRAM50TA2 PO
== END ==
LOC: M LABSMTC 11:54
PROVIDERS: ATTEND Anesthesiology
DX: Z01.812 Encounter for preprocedural laboratory examination (principal); Z20.822 Contact with and (suspected) exposure to COVID-19

== ENCOUNTER → 2020-11-21 | Outpatient (CLI) | payer OTHER ==
--- NOTE | 2020-11-21 16:33 | REPVR ---
PROCEDURE INFORMATION: Exam: MR Cervical Spine Without Contrast Exam date and time: 11/21/2020 3:27 PM Age: 35 years old Clinical indication: Radicular pain (radiculopathy); Cervical region; Additional info: Radiculopathy, eval c5-6 TECHNIQUE: Imaging protocol: Multiplanar magnetic resonance images of the cervical spine without contrast. COMPARISON: CR SPINE CERVICAL AP/LAT 10/14/2020 10:51 AM FINDINGS: Cervical vertebral body heights are intact. Straightening of the cervical lordosis. The dens is intact. No abnormal marrow signal. No cord compression, expansion, or abnormal cord signal. Visualized structures of the posterior fossa are unremarkable. Soft tissues are unremarkable. C2-C3: No significant canal or foraminal narrowing. C3-C4: No significant canal or foraminal narrowing. C4-C5: No significant canal or foraminal narrowing. C5-C6: Posterior disc protrusion and uncovertebral spurring cause mild to moderate canal narrowing with effacement of the anterior thecal sac. Severe right foraminal narrowing with likely compression upon the exiting right C6 nerve root. C6-C7: No significant canal or foraminal narrowing. C7-T1: No significant canal or foraminal narrowing. IMPRESSION: Spondylotic related severe right foraminal narrowing at C5-C6 with likely compression upon the exiting right C6 nerve root. Recommend surgical consultation. Electronically signed by: Star Marie On 11/21/2020 16:33:04 PM
== END ==
LOC: M PLARAD 13:25
PROVIDERS: ATTEND Orthopaedic Surgery Sports Medicine
DX: M54.12 Radiculopathy, cervical region (principal)

== ENCOUNTER → 2020-11-21 | Outpatient (CLI) | payer OTHER ==
[2020-11-21 16:11] LABS: BASO % 0.8 % (0.0-1.0); EOS # 0.2 10^3/uL (0.0-0.5); HEMATOCRIT 40.8 % (42.0-52.0); HEMOGLOBIN 13.4 g/dl (13.5-17.5); LYMPH # 1.2 10^3/uL (1.5-5.0); LYMPH % 29.8 % (24.0-44.0); MEAN CORPUSCULAR HEMOGLOBIN 29.3 pg (27.0-33.0); MEAN CORPUSCULAR HGB CONC 32.8 g/dl (32.0-36.5); MEAN CORPUSCULAR VOLUME 89.3 fl (80.0-96.0); MONO # 0.6 10^3/uL (0.0-0.8); NEUTROPHILS % 49.9 % (36.0-66.0); RED BLOOD COUNT 4.57 10^6/uL (4.30-6.10)
[2020-11-21 16:36] LABS: ALBUMIN 3.2 GM/DL (3.2-5.2); ALT/SGPT 43 U/L (12-78); BLOOD UREA NITROGEN 9 MG/DL (7-18); CALCIUM LEVEL 8.7 MG/DL (8.5-10.1); CARBON DIOXIDE LEVEL 25 MEQ/L (21-32); CHLORIDE LEVEL 110 MEQ/L (98-107); CREATININE FOR GFR 0.63 MG/DL (0.70-1.30); GLOMERULAR FILTRATION RATE > 60.0 (>60); GLUCOSE, FASTING 103 MG/DL (70-100); SODIUM LEVEL 141 MEQ/L (136-145); TOTAL PROTEIN 6.8 GM/DL (6.4-8.2)
[2020-11-21 16:42] LABS: PLATELET COUNT, AUTOMATED 73 10^3/uL (150-450)
== END ==
LOC: M LAB 15:38
PROVIDERS: ATTEND Family Medicine
DX: Z01.818 Encounter for other preprocedural examination (principal)

== ENCOUNTER → 2020-11-24 | Outpatient (REF) | payer OTHER | LOC: M SFHCADAM 09:52 | PROVIDERS: ATTEND Family Medicine | DX: Z01.818 Encounter for other preprocedural examination (principal); Z53.9 Procedure and treatment not carried out, unspecified reason ==

== ENCOUNTER 2020-11-26 10:00 | Day surgery (SDC) | payer OTHER ==
[~2020-11-26] VITALS: Ht 170.2 cm; Wt 110.0 kg
[~2020-11-26 10:00] MED LIST changes: +LR 1,000 ML IV ONE; +ceFAZolin SOD 2 GM in IV 1 EA IV ONE
[2020-11-26] MEDS ORDERED: MIDAZOLAM INJ 2MG/2ML VIAL (J2250 PER 1MG) As Ordered ONE (12:35)
[2020-11-26] MEDS ORDERED: LIDOCAINE 2% 100MG/5ML SDV (FOR ANES.) As Ordered ONE (12:35)
[2020-11-26] MEDS ORDERED: propofoL 200 MG/20 ML VIAL As Ordered ONE ×2 (12:35→14:22)
[2020-11-26] MEDS ORDERED: dexameTHASONE 4 MG/ML 1ML VIAL (J1100 PER 1MG) As Ordered ONE (12:35)
[2020-11-26] MEDS ORDERED: fentaNYL 250 MCG/5 ML INJECTION (J3010) As Ordered ONE (12:35)
[2020-11-26] MEDS ORDERED: KETOROLAC 60MG 2ML VIAL As Ordered ONE (12:36)
[2020-11-26] MEDS ORDERED: ONDANSETRON 4MG/2ML VIAL As Ordered ONE (12:36)
[2020-11-26] MEDS ORDERED: BUPIVACAINE/EPIN 0.25% 30 ML VIAL As Ordered ONE (13:28)
--- NOTE | 2020-11-26 14:33 | ROOPDOC ---
[facility] Report Of Operation Report of Operation DATE OF PROCEDURE: 11/26/20 PREPROCEDURE DIAGNOSES: Right carpal tunnel syndrome. POSTPROCEDURE DIAGNOSES: Right carpal tunnel syndrome. PROCEDURE: Right open carpal tunnel release. SURGEON: Dr. Alejandro Balderas MD COOKY MACHINE OPERATOR: ANESTHESIA: Local/mac dr longo. ESTIMATED BLOOD LOSS: Approximately 5 mL. COMPLICATIONS: None. REMARKS: None. PROCEDURE NOTE: This 35-year-old man had signs and symptoms as well as nerve conduction study evidence of right carpal tunnel syndrome of the wrist. We discussed the pros and cons risks and benefits of conservative nonoperative management versus surgical open carpal tunnel release. He wished to go ahead with surgery. Marked right upper extremity. Prior to this we had a discussion as well about his recent MRI cervical spine findings, I will be referring him to a spine surgeon for that. DESCRIPTION OF PROCEDURE: Patient was brought to the operating theater. They were placed supine on the operating room table. Hand table was used. Limb was prepped and draped in the usual sterile fashion. I used chlorhexidine-based prep solution allowing over 3 minutes drying time prior to draping. 2 g of IV Ancef was given prior to starting the case. Local/MAC anesthesia was used. Preoperative timeout was performed confirming the site the patient and the surgery. I began by infiltrating 8 mL of 0.25 percent Marcaine with epinephrine in and around the proposed incision site. This was on the palmar surface just distal to the wrist crease longitudinally in line with the fourth digit. The incision length was approximately 2 cm. I allowed the local anesthetic time to work. I carried the dissection down through skin and subcutaneous tissue to meticulous hemostasis. I incised the palmar fascia in line with the skin incision. I incised the transverse carpal ligament in line with the skin incision fully proximally and distally. I excised the small leaflet from the radial side of the transverse carpal ligament. Nerve appeared in continuity throughout the case. I thoroughly irrigated the wound with normal saline. I closed the subcutaneous tissues with 2-0 Vicryl sutures and the skin with 3-0 Ethilon in a horizontal mattress fashion. Wound cleaned with wet and dry dressing followed by application of non stick dressing, 4 x 8 gauze and overwrapped with Bob type dressing. Patient was woken up from their sedation and transferred off the operating room table and taken to postanesthetic care unit in stable condition. All sponge, needle, instrument counts were correct. No complications. The patient is to start immediate hand wrist and elbow exercises but avoid heavy lifting and gripping-type activities for the first 6 weeks. They will be discharged home according to day surgery criteria. They can change the dressing postoperative day 1 and avoid showering over top or getting it wet for the first 14 days. Follow-up in the office in 2 weeks' time. Postoperative wound instructions were given. It was recommended to keep the wound clean and dry. Dressing changes as needed. It was reinforced with the patient that they should call us or be seen immediately for redness, drainage, or fever. Risk factors for harms from taking opioid medications discussed and assessed including but not limited to personal or family history of substance use disorder, anxiety or depression, , age 65 or older, COPD or other underlying respiratory conditions, and renal or hepatic insufficiency. Discussed with patient concerns and determined any harms they may experience or be currently experiencing such as nausea or constipation, feeling sedated or confused, breathing interruptions during sleep, or taking or craving more opioids than prescribed or difficulty controlling use (addiction). Discussed early warning signs of overdose including confusion, sedation, slurred speech, abnormal gait. ALEJANDRO BALDERAS MD Nov 26, 2020 14:33
[2020-11-26 14:45] VITALS: BP 142/73
[2020-11-26] MEDS ORDERED: ONDANSETRON 4MG/2ML VIAL IV PRN ×2 (14:55→15:00)
[2020-11-26] MEDS ORDERED: LR 1,000 ML IV SCH ×2 (14:55→15:00)
[2020-11-26] MEDS ORDERED: oxyCODONE 5MG TAB PO PRN (14:55)
[2020-11-26] MEDS ORDERED: MORPHINE 2 MG/ML 1ML VIAL (J2270) IV PRN (15:00)
[2020-11-26] MEDS ORDERED: ACETAMINOPHEN TAB 650MG DOSE (2X325MG) PO PRN (15:00)
[2020-11-26] MEDS ORDERED: PERCOCET 5MG/325MG TAB PO PRN (15:00)
== END 2020-11-26 14:55 | disposition home or self-care (01) ==
LOC: M SDC 10:00
PROVIDERS: ATTEND Orthopaedic Surgery Sports Medicine
DX: G56.01 Carpal tunnel syndrome, right upper limb (principal); K74.60 Unspecified cirrhosis of liver; K21.9 Gastro-esophageal reflux disease without esophagitis; J44.9 Chronic obstructive pulmonary disease, unspecified; F17.218 Nicotine dependence, cigarettes, with other nicotine-induced disorders; Z79.899 Other long term (current) drug therapy
CPT/HCPCS: 64721; J0690; J1885; J2250; J2405; J3010

== ENCOUNTER → 2020-12-29 | Outpatient (CLI) | payer OTHER ==
[~2020-12-29] MED LIST changes: -LR 1,000 ML IV ONE; -ceFAZolin SOD 2 GM in IV 1 EA IV ONE
--- NOTE | 2020-12-29 13:20 | REP ---
INDICATION: F/U FX. COMPARISON: None TECHNIQUE: AP and lateral views of the right wrist FINDINGS: No obvious acute fracture or dislocation. Skeletal structures, joint spaces, and surrounding soft tissues are normal. No subcutaneous emphysema or foreign body. IMPRESSION: No obvious acute fracture or dislocation. <Electronically signed by Christiano Malloy > 12/29/20 [id number]
== END ==
LOC: M SOG 11:13
PROVIDERS: ATTEND Orthopaedic Surgery Sports Medicine
DX: T81.40XD Infection following a procedure, unspecified, subsequent encounter (principal); Z47.89 Encounter for other orthopedic aftercare

== ENCOUNTER 2021-01-07 06:13 | Day surgery (SDC) | payer OTHER ==
[~2021-01-07] VITALS: Ht 170.2 cm; Wt 112.5 kg
[~2021-01-07 06:13] MED LIST changes: +IBUP-1425 PO; +LR 1,000 ML IV ONE; +OXYC1TAB23 PO
[2021-01-07] MEDS ORDERED: dexameTHASONE 4 MG/ML 1ML VIAL (J1100 PER 1MG) As Ordered ONE (07:16)
[2021-01-07] MEDS ORDERED: KETOROLAC 60MG 2ML VIAL As Ordered ONE (07:16)
[2021-01-07] MEDS ORDERED: propofoL 200 MG/20 ML VIAL As Ordered ONE ×2 (07:16→08:20)
[2021-01-07] MEDS ORDERED: LIDOCAINE 2% 100MG/5ML SDV (FOR ANES.) As Ordered ONE (07:16)
[2021-01-07] MEDS ORDERED: fentaNYL 100 MCG/2 ML INJECTION (J3010) As Ordered ONE ×2 (07:16→08:45)
[2021-01-07] MEDS ORDERED: MIDAZOLAM INJ 2MG/2ML VIAL (J2250 PER 1MG) As Ordered ONE (07:16)
[2021-01-07] MEDS ORDERED: ONDANSETRON 4MG/2ML VIAL As Ordered ONE (07:16)
[2021-01-07] MEDS ORDERED: LIDOCAINE 5% OINT 30GM TUBE As Ordered ONE (07:42)
[2021-01-07] MEDS ORDERED: BUPIVACAINE/EPIN 0.25% 30 ML VIAL As Ordered ONE (07:45)
[2021-01-07] MEDS ORDERED: CLINDAMYCIN 600 MG/50 ML PREMIX BAG As Ordered ONE (07:50)
[2021-01-07] MEDS ORDERED: ceFAZolin 1GM VIAL (J0690 PER 500MG) As Ordered ONE (07:51)
[2021-01-07] MEDS: fentaNYL 100 MCG/2 ML INJECTION (J3010) IV PRN ×3 (08:47→09:14)
[2021-01-07] MEDS ORDERED: LR 1,000 ML IV SCH (09:05)
[2021-01-07] MEDS ORDERED: ONDANSETRON 4MG/2ML VIAL IV PRN (09:05)
[2021-01-07] MEDS ORDERED: PERCOCET 5MG/325MG TAB PO PRN (09:05)
--- NOTE | 2021-01-07 09:08 | ROOPDOC ---
[facility] Report Of Operation Report of Operation DATE OF PROCEDURE: 01/07/21 PREPROCEDURE DIAGNOSES: Right wrist postoperative carpal tunnel release infection. POSTPROCEDURE DIAGNOSES: Same. PROCEDURE: Right wrist irrigation and debridement revision open carpal tunnel release and median nerve neurolysis. SURGEON: Dr. Alejandro Balderas MD INSTRUCTION ASSISTANT PRINCIPAL: MD Len ANESTHESIA: Local and general anesthesia Dr Diaz. ESTIMATED BLOOD LOSS: Approximately 10 mL. COMPLICATIONS: None. REMARKS: None. PROCEDURE NOTE: This 35-year-old man had continued pain and drainage 5 weeks after right open carpal tunnel release. MRI was consistent with possible infection however his blood work was negative. We discussed the pros and cons or some benefits of going ahead with right wrist irrigation and debridement. He wished to proceed a marked right upper extremity and proceeded to surgery. . DESCRIPTION OF PROCEDURE: The patient was brought to the operating theater. There placed supine on the operating room table. Antibiotics were held until after the procedure was performed and then 600 mg of IV clindamycin was administered. Arm table used to the patient's right side. 18 inch tourniquet applied. General anesthesia was induced. The limb was prepped and draped with iodine-based prep solution. This was allowed to thoroughly dry prior to draping over 3 minutes. Preoperative timeout performed to confirm the site patient and surgery. Began by elevating the limb and inflating the tourniquet to 250 mmHg. I used the same incision. Dissection down through skin and subcutaneous tissue. I release the carpal tunnel ligament this was scarred in. There is increased vascularity in the region as well as some slight grayish tissue but no obvious large fluid collections or pus coming out of the incision. Intraoperative tissue samples sent us for Gram stain culture and sensitivities aerobes and anaerobes as well as swabs. Neuro lysis was performed of median nerve some mild scar tissue there. I re-release the carpal tunnel ligament. Wound thoroughly irrigated with normal saline with 1 g of IV Ancef solution. Tourniquet let down and meticulous he mostasis achieved. Subcutaneous tissue closed with 2-0 Vicryl sutures and skin with 3-0 Monocryl. Steri-Strips are applied. 5 mL of quarter percent Marcaine with epinephrine instilled around the incision site. Skin cleaned, dry dressing. I placed Steri-Strips and Adaptic gauze and overwrapped with Bob type dressing loosely. Patient woken up from general anesthetic transferred off operating room table to the postanesthetic care unit in stable condition. All sponge needle and instrument counts correct. No complications. Estimated blood loss 10 mL. Plan for the patient gentle range of motion of the hand and wrist. No heavy lifting or gripping for the first 6 weeks. I have also sent a prescription for Augmentin antibiotics for 5 days as well as small short prescription of Percocet. I will follow him up within 5 days' time. Change dressing daily and appropriate wound care instructions given. Postoperative wound instructions were given. It was recommended to keep the wound clean and dry. Dressing changes as needed. It was reinforced with the patient that they should call us or be seen immediately for redness, drainage, or fever. ALEJANDRO BALDERAS MD January 07, 2021 09:08
[2021-01-07 09:23] VITALS: BP 148/79
== END 2021-01-07 09:52 | disposition home or self-care (01) ==
LOC: M SDC 06:13
PROVIDERS: ATTEND Orthopaedic Surgery Sports Medicine
DX: T81.40XA Infection following a procedure, unspecified, initial encounter (principal); Y79.8 Miscellaneous orthopedic devices associated with adverse incidents, not elsewhere classified; K72.90 Hepatic failure, unspecified without coma; R18.8 Other ascites; K74.60 Unspecified cirrhosis of liver; K21.9 Gastro-esophageal reflux disease without esophagitis; Z87.19 Personal history of other diseases of the digestive system; R06.02 Shortness of breath; M51.9 Unspecified thoracic, thoracolumbar and lumbosacral intervertebral disc disorder; J44.9 Chronic obstructive pulmonary disease, unspecified; R06.83 Snoring; F17.210 Nicotine dependence, cigarettes, uncomplicated; Z79.891 Long term (current) use of opiate analgesic
CPT/HCPCS: 64721; 87070; 87075; 87077; 87102; 87186; 87205; J0690; J1100; J1885; J2250; J2405; J3010

== ENCOUNTER 2021-01-11 21:38 | Emergency (ER) | payer OTHER ==
[~2021-01-11] VITALS: Ht 170.2 cm; Wt 116.8 kg
[~2021-01-11 21:38] MED LIST changes: -LR 1,000 ML IV ONE
[2021-01-11 21:39] VITALS: BP 168/85
== END 2021-01-11 22:53 | disposition home or self-care (01) ==
LOC: M ED 21:38
DX: Z48.811 Encounter for surgical aftercare following surgery on the nervous system (principal); J44.9 Chronic obstructive pulmonary disease, unspecified; K74.60 Unspecified cirrhosis of liver; F10.10 Alcohol abuse, uncomplicated; F17.200 Nicotine dependence, unspecified, uncomplicated

== ENCOUNTER → 2021-01-12 | Outpatient (CLI) | payer OTHER ==
--- NOTE | 2021-01-14 00:05 | ECWPNPC ---
PATIENT NAME: JULITO NAJERA : 1985 GENDER: MALE VISIT DATE: 01/12/2021 DISCHARGE DATE: 01/12/21 1202 VISIT LOCKED DATE TIME: PHYSICIAN: GORAN RIGGS PHYSICIAN PAGER NO: ACTIVE RESOURCE: GORAN RIGGS REASON FOR APPOINTMENT 1. RIGHT SIDED FORAMINAL NARROWING, HISTORY OF PRESENT ILLNESS DEPRESSION SCREENING: PHQ-2 (2015 EDITION) LITTLE INTEREST OR PLEASURE IN DOING THINGS?NOT AT ALL FEELING DOWN, DEPRESSED, OR HOPELESS?NOT AT ALL TOTAL SCORE0 GENERAL: HPI 35-YEAR-OLD MALE IN FOR INITIAL PAIN CONSULT REGARDING NECK PAIN WITH RADICULOPATHY. HE RATES HIS PAIN CURRENTLY AT AN 8-10 OUT OF 10 AND DESCRIBES IT THROBBING. HE DENIES MEDICATIONS THAT IT HELPED HIM IN THE PAST. HE STATES HE HAS NEVER RECEIVED INJECTIONS.. - - -. FALL RISK SCREENING: SCREENING : NO FALLS REPORTED IN THE LAST YEAR , : NO FALLS REPORTED IN THE LAST YEAR. PAIN SCREENING: PATIENT HAS A COMPLAINT OF ACUTE OR CHRONIC PAIN :YES LOCATION OF PAIN:NECK, RIGHT SHOULDER INTENSITY OF PAIN (SCALE OF 1 TO 10): 8-10/10 WHAT DOES YOUR PAIN FEEL LIKE:THROBBING DURATION:CONTINOUS PAIN IS INCREASED BY:ACTIVITIES PAIN IS DECREASED BY:USE OF PAIN MEDICATIONS NURSING NOTE: - - -. PAIN CENTER INTAKE QUESTIONS: DO YOU HAVE A HISTORY OF MRSA? :NO DO YOU TAKE A BLOOD THINNERS? :NO DO YOU HAVE ANY BLEEDING DISORDERS? :NO ANY NEW NUMBNESS OR WEAKNESS IN YOUR LEGS OR ARMS? :NO ANY PACEMAKER,DEFIBRILLATOR, OR DORSAL COLUMN STIMULATOR? :NO DO YOU HAVE ANY RASHES OR OPEN SORES? :YES RIGHT CARPAL TUNNEL REPAIR LAST TUESDAY, INCISION IS HEALING, PT HAS IT COVERED WITH A DRESSING. ARE YOU ALLERGIC TO IV DYE? :NO ARE YOU DIABETIC? :NO ANY NEW PROBLEMS WITH YOUR MEDICATIONS? :NO HAVE YOU RECEIVED A VACCINE IN THE PAST 30 DAYS? :YES IF SO WHAT VACCINE AND WHEN? #1 COVID VACCINE 2 MOS AGO [facility] #2 COVID VACCINE 12/19/20 @ [facility] DO YOU PLAN TO RECEIVE A VACCINE IN THE NEXT 21 DAYS? :NO DO YOU NEED ANY PRESCRIPTION? :NO DO YOU TAKE ANY IMMUNOSUPPRESSIVE MEDICATIONS? :NO IS THERE A CHANCE YOU COULD BE ? :NO ARE YOU BREAST FEEDING? :NO CURRENT MEDICATIONS TAKING OXYCODONE-ACETAMINOPHEN 5-325 MG TABLET 1 TABLET NEEDED ORALLY EVERY 6 HRS NOT-TAKING DULOXETINE HCL 30 MG CAPSULE DELAYED RELEASE PARTICLES 1 CAPSULE ORALLY ONCE A DAY NOT-TAKING CITALOPRAM HYDROBROMIDE 40 MG TABLET 1 TABLET ORALLY ONCE A DAY NOT-TAKING PANTOPRAZOLE SODIUM 40 MG TABLET DELAYED RELEASE 1 TABLET ORALLY TWICE DAILY NOT-TAKING CARAFATE 1 GM TABLET 1 TABLET ON AN EMPTY STOMACH ORALLY TWICE A DAY NOT-TAKING MILK THISTLE 500 MG CAPSULE DIRECTED ORALLY NOT-TAKING TRAZODONE HCL 100 MG TABLET 1 TABLET AT BEDTIME ORALLY ONCE A DAY NOT-TAKING TRAMADOL HCL 50 MG TABLET 1 TABLET NEEDED ORALLY THREE TIMES A DAY NOT-TAKING VIAGRA 25 MG TABLET 1 TABLET NEEDED ORALLY ONCE A DAY NOT-TAKING NADOLOL 20 MG TABLET 1 TABLET ORALLY ONCE A DAY NOT-TAKING CLONIDINE HCL 0.1 MG TABLET 1 OR 2 TABLETS ORALLY AT BEDTIME NOT-TAKING HYDROXYZINE HCL 25 MG TABLET 1 TABLET NEEDED ORALLY DAILY NOT-TAKING SERTRALINE HCL 25 MG TABLET 1 TABLET ORALLY ONCE A DAY MEDICATION LIST REVIEWED AND RECONCILED WITH THE PATIENT PAST MEDICAL HISTORY ALCOHOLIC CIRRHOSIS OF LIVER WITH ESOPHAGEAL VARICES, ON NADOLOL ETOH ABUSE COPD HISTORY OF PANCREATITIS ALLERGIES N.K.D.A. SURGICAL HISTORY CHOLECYSTECTOMY 09/2019 HERNIA REPAIR 10/2019 MYRINGOTOMY TUBES AGE 5 ENDOSCOPY CARPAL TUNNEL SX RIGHT CARPAL TUNNEL REPAIR 12/2020 FAMILY HISTORY FATHER: 63 YRS, HEART DISEASE, HYPERTENSION, STROKE, HYPERLIPIDEMIA MOTHER: 58 YRS, BLOOD CLOT, HEART ATTACK SOCIAL HISTORY GENERAL: TOBACCO USE ARE YOU A:CURRENT SMOKER HOW OFTEN DO YOU SMOKE CIGARETTES?EVERY DAY HOW SOON AFTER YOU WAKE UP DO YOU SMOKE YOUR FIRST CIGARETTE?6-30 MIN HOW MANY CIGARETTES A DAY DO YOU SMOKE?6-10 ARE YOU INTERESTED IN QUITTING?NOT READY TO QUIT PATIENT COUNSELED ON THE DANGERS OF TOBACCO USE AND URGED TO QUIT:12/26/2020 COUNSELED THE PATIENT ON SMOKING EFFECTS, EDUCATION [id number]/07/2021 LATEX QUESTIONNAIRE LATEX ALLERGY : HAVE YOU EVER DEVELOPED ANY TYPE OF REACTION AFTER HANDLING LATEX PRODUCTS SUCH RUBBER GLOVES, CONDOMS, DIAPHRAGMS, BALLOONS, SOCKS, OR UNDERWEAR?NO LATEX ALLERGY : HAVE YOU EVER DEVELOPED ANY TYPE OF REACTION DURING OR AFTER DENTAL APPOINTMENT, VAGINAL/RECTAL EXAMINATION, SURGICAL PROCEDURE, OR ANY OTHER EXPOSURE?NO DATE ASKED : 12/26/2020 LATEX RISK : HAVE YOU EVER HAD ANY DIFFICULTY BREATHING OR HIVES AFTER EATING OR HANDLING ANY FRUITS, OR VEGETABLES; SUCH KIWI, BANANAS, STONE FRUITS, OR CHESTNUTSNO LATEX RISK : DO YOU HAVE A PREVIOUS PERSONAL HISTORY OF MORE THAN NINE SURGERIES, SPINA BIFIDA, OR REPEATED CATHERIZATIONS? NO LATEX RISK : ARE YOU FREQUENTLY EXPOSED TO LATEX PRODUCTS IN YOUR OCCUPATION?NO BMI CARE GOAL FOLLOW-UP ABOVE NORMAL BMI FOLLOW-UPDIETARY MANAGEMENT EDUCATION, GUIDANCE, AND COUNSELING ALCOHOL SCREENING DID YOU HAVE A DRINK CONTAINING ALCOHOL IN THE PAST YEAR?YES HOW OFTEN DID YOU HAVE SIX OR MORE DRINKS ON ONE OCCASION IN THE PAST YEAR?NEVER (0 POINTS) HOW MANY DRINKS DID YOU HAVE ON A TYPICAL DAY WHEN YOU WERE DRINKING IN THE PAST YEAR?1 OR 2 (0 POINTS) HOW OFTEN DID YOU HAVE A DRINK CONTAINING ALCOHOL IN THE PAST YEAR?NEVER (0 POINTS) POINTS0 INTERPRETATIONNEGATIVE RECREATIONAL DRUG USE DRUG USE?YES HOW OFTEN AND HOW MUCH? MARIJUANA CAFFEINE CAFFEINE USE?YES 1-2 DAILY SEXUAL HX HAD SEX IN THE LAST 12 MONTHS (VAGINAL, ORAL, OR ANAL)?YES WITHWOMEN ONLY USE PROTECTION?NO HAVE YOU EVER HAD AN STD?NO PENTECOSTALISM PENTECOSTALISM NO SCIENTOLOGIST BELIEFS THAT WOULD IMPACT HEALTH CARE. LANGUAGE LANGUAGES SPOKEN:HUNGARIAN LEARNING BARRIERS / SPECIAL NEEDS CHANGE FROM LAST VISIT?NO BARRIERS TO LEARNING?NO HEARING IMPAIRED?NO VISION IMPAIRED?YES COGNITIVELY IMPAIRED?NO :CORRECTIVE LENSES READINESS TO LEARN?YES LEARNING PREFERENCES?NO LEARNING CAPABILITIES PRESENT?YES EMOTIONAL BARRIERS?NO SPECIAL DEVICES?NO LEHR STRIPPER NEEDED?NO DOMESTIC VIOLENCE STATUS:PARTNERED DO YOU FEEL SAFE IN YOUR ENVIRONMENT?YES OCCUPATION: UNEMPLOYED. DIET: REGULAR. EXERCISE: WALKS. MARITAL STATUS: SINGLE, LIVING WITH GIRLFRIEND AND HER 4 CHILDREN AND HER FATHER. OTHERS AT HOME: 2 OTHER NON-RELATIVE, CHILDREN. HOSPITALIZATION/MAJOR DIAGNOSTIC PROCEDURE PANCREATITIS 12/2019 REVIEW OF SYSTEMS CONSTITUTIONAL: ANY RECENT FEVER NO . CHILLS NO . WEIGHT CHANGE OF UNKNOWN REASONS NO . MUSCULOSKELETAL: ANY UNUSUAL JOINT PAIN OR SWELLING NOT MENTIONED NO . SYSTEMIC LUPUS NO . ANY NEUROMUSCULAR DISORDER NOT MENTIONED NO . LYME DISEASE NO . GASTROENTEROLOGY: ANY NEW CHANGE IN BOWEL CONTROL? NO . HISTORY OF LIVER DISORDER NOT MENTIONED NO . HISTORY OF UNUSUAL ABDOMINAL PAIN OR CRAMPING NOT MENTIONED NO . NO CONSTIPATION. GENITOURINARY: ANY NEW CHANGE IN BLADDER CONTROL? NO . ANY RENAL/KIDNEY CONDITON NOT MENTIONED NO . NEUROLOGY: HISTORY OF TBI NOT MENTIONED NO . OTHER NEW NUMBNESS OR PAIN PATTERNS NOT MENTIONED NO . NEW ONSET DIZZINESS OR NEUROLOGICAL CHANGES NOT MENTIONED NO . HISTORY OF SEVERE HEADACHES NOT MENTIONED NO . HISTORY OF STROKE OR NEUROLOGICAL DISORDER NOT MENTIONED NO . CARDIOLOGY: HEART SURGERY NO . CONGESTIVE HEART FAILURE/FLUID OVERLOAD NOT MENTIONED NO . HISTORY OF CHEST PAIN,IRREGULAR HEART BEAT NOT MENTIONED NO . RESPIRATORY: SHORTNESS OF BREATH ON EXERTION, WHEEZES, UNUSUAL COUGH NOT MENTIONED NO . ENDOCRINOLOGY: ADRENAL GLAND OR THYROID DISORDERS NOT MENTIONED NO . UNUSUAL URINATION, DIZZINESS OR LETHARGY NOT MENTIONED NO . VITAL SIGNS WT 255.6 LBS, HT 5'7", BMI 40.03 INDEX, BP 158/77 MM HG, HR 95 /MIN, RR 18 /MIN, TEMP 98.8 F, OXYGEN SAT % 98%, SAFE IN ENV? (Y/N) Y, NA INITIALS AW 1113, REVIEWED BY: EM. EXAMINATION GENERAL EXAMINATION: GENERALNO ACUTE DISTRESS, WELL NOURISHED AND HYDRATED. PSYCHAPPROPRIATE MOOD AND AFFECT . NECK:POINT TENDER ALONG CERVICAL SPINE, POSITIVE SPURLING'S TEST.. LUNGS:CLEAR TO AUSCULTATION BILATERALLY, NO WHEEZES, RHONCHI, RALES. HEART:NO MURMURS, REGULAR RATE AND RHYTHM. ASSESSMENTS CERVICAL DISC DISORDER WITH RADICULOPATHY - M50.10 (PRIMARY) TREATMENT CERVICAL DISC DISORDER WITH RADICULOPATHY START GABAPENTIN CAPSULE, 300 MG, 1 CAPSULE, ORALLY, THREE TIMES DAILY START DAY 6, 30 DAY(S), 90 START GABAPENTIN CAPSULE, 100 MG, 1 CAPSULE, ORALLY, THREE TIMES DAILY, 5 DAYS, 15 NOTES: 35-YEAR-OLD MALE IN FOR INITIAL PAIN CONSULT REGARDING HIS NECK PAIN. GIVEN PRESENTING SYMPTOMS AND RESULTS OF PHYSICAL EXAMINATION RECOMMEND CERVICAL EPIDURAL STEROID INJECTIONS WITH POST PROCEDURAL FOLLOW-UP. FURTHER RECOMMENDED STARTING GABAPENTIN. PATIENT HAS EXPRESSED UNDERSTANDING OF AND WAS IN AGREEMENT TREATMENT PLAN. GIVEN TIME TO ASK QUESTIONS AND EXPRESS CONCERNS. OTHERS NOTES: CERVICAL EPIDURAL INJECTION MATERIAL WAS PRINTED,PREGABALIN MATERIAL WAS PRINTED REVIEWED AND GIVEN TO PT. EM. PROCEDURE CODES FA211 ESTABILISHED PATIENT [facility] CHARGE DISPOSITION & COMMUNICATION FOLLOW UP POST PROCEDURE (REASON: CERVICAL EPIDURAL STEROID INJECTION) ELECTRONICALLY SIGNED BY SABINO IRIZARRY ON 01/13/2021 AT 09:57 AM EDT DISCLAIMER : THIS IS A VISIT SUMMARY EXTRACTED FROM THE [employer] CHART. IT IS NOT A COPY OF THE [employer] PROGRESS NOTE. FLORENTINO
== END ==
LOC: M PAIN 11:00
PROVIDERS: ATTEND Family Medicine
DX: M50.10 Cervical disc disorder with radiculopathy, unspecified cervical region (principal); K70.30 Alcoholic cirrhosis of liver without ascites; I85.10 Secondary esophageal varices without bleeding; J44.9 Chronic obstructive pulmonary disease, unspecified; F17.210 Nicotine dependence, cigarettes, uncomplicated; Z79.891 Long term (current) use of opiate analgesic

== ENCOUNTER 2021-02-11 11:56 | Day surgery (SDC) | payer OTHER ==
[~2021-02-11] VITALS: Ht 170.2 cm; Wt 118.0 kg
[~2021-02-11 11:56] MED LIST changes: +MIDAZOLAM INJ 2MG/2ML VIAL (J2250 PER 1MG) As Ordered ONE; +VANCOMYCIN HCL 1,000 MG, VIAL MATE ADAPTER 1 EACH in NS 250 ML IV ONE; +fentaNYL 100 MCG/2 ML INJECTION (J3010) As Ordered ONE
[2021-02-11] MEDS ORDERED: VANCOMYCIN 1000MG/20ML VIAL As Ordered ONE ×3 (12:08→13:14)
[2021-02-11] MEDS ORDERED: VANCOMYCIN HCL 1,000 MG, VIAL MATE ADAPTER 1 EACH in NS 250 ML IV ONE (13:10)
[2021-02-11] MEDS ORDERED: dexameTHASONE 4 MG/ML 1ML VIAL (J1100 PER 1MG) As Ordered ONE (13:29)
[2021-02-11] MEDS ORDERED: ONDANSETRON 4MG/2ML VIAL As Ordered ONE (13:29)
[2021-02-11] MEDS ORDERED: LIDOCAINE 2% 100MG/5ML SDV (FOR ANES.) As Ordered ONE (13:29)
[2021-02-11] MEDS ORDERED: propofoL 200 MG/20 ML VIAL As Ordered ONE (13:29)
[2021-02-11] MEDS ORDERED: HYDROmorphone HCL 2 MG/ML 1ML VIAL (J1170) As Ordered ONE (13:41)
[2021-02-11] MEDS ORDERED: BUPIVACAINE/EPIN 0.25% 30 ML VIAL As Ordered ONE (14:11)
--- NOTE | 2021-02-11 14:40 | ROOPDOC ---
[facility] Report Of Operation Report of Operation DATE OF PROCEDURE: 02/11/21 PREPROCEDURE DIAGNOSES: Right wrist infection. POSTPROCEDURE DIAGNOSES: Same. PROCEDURE: Right wrist irrigation and debridement. SURGEON: Dr. Uday Balderas MD CEMENT CAR DUMPER: ANESTHESIA: General anesthetic and local. ESTIMATED BLOOD LOSS: Approximately 20 mL. COMPLICATIONS: None. REMARKS: None. PROCEDURE NOTE: This 35-year-old man had signs and symptoms consistent with possible recurrent or low-grade indolent infection after carpal tunnel release. I performed irrigation and debridement 4 weeks ago. He continued to experience a minor amount of self reported drainage and problems with healing the wound, as such we discussed the pros and cons risks and benefits of going ahead with a second time repeat revision irrigation and debridement right wrist. I marked the right upper extremity. He had no further questions. DESCRIPTION OF PROCEDURE: The patient was brought to the operating room theater. They were placed supine on the operating room table with a hand table to the patient's right side. 2 g of intravenous vancomycin was administered prior to the start of the case. General anesthesia was induced. Bed was turned 90 degrees. 18 inch tourniquet applied to the right upper extremity and appropriately padded. Sequential devices on the legs. Right upper extremity pr epped and draped in the usual sterile fashion twice over with chlorhexidine- based prep solution allowed to thoroughly dry over 3 minutes prior to draping. Preoperative timeout performed to confirm the site patient and surgery. I began by elevating the limb and inflating the tourniquet to 250 mmHg. I made an ellipse type incision to excise scar tissue at the volar palmar aspect just distal to the wrist crease around the old incision approximately 2 cm long incision. I excised this to normal borders of skin and soft tissue in the subcutaneous tissues. I sent both superficial and deep tissue samples for Gram stain culture and sensitivities as well as aerobes and anaerobes. I performed a revision carpal tunnel release the carpal tunnel was again quite scarred and and I ensured to release this proximally and distally at the transverse carpal tunnel ligament. The median nerve had some mild scar tissue. I used a freer elevator to ensure that this was released proximally and distally. I used Betadine wash scrubbing with sterile gauze as well as rongeur to remove any possibly infected tissue but there was no obvious pockets of purulent material. I then irrigated with copious amounts 3 L of normal saline with 1 g of vancomycin per liter. Tourniquet was let down prior to the end of the case total tourniquet time 24 minutes. I ensured good hemostasis although the tissues were irritated and had a small amount of bleeding that I used electrocautery to control. I then closed the subcutaneous tissue with 2-0 Vicry l sutures and skin with simple interrupted 3-0 Ethilon suture. I used 5 cc 1% marcaine with epinephrine for pain control around the incision. I allowed this to thoroughly dry, cleaned the wound with wet and dry dressing. I placed a very small dab between each suture of Dermabond. I then placed Adaptic 4 by 4 gauze abdominal pad dressing and then overwrapped with sterile 6 inch Hipolito bandage. Patient was woke up from the general anesthetic transferred off the operating room table and taken to postanesthetic care unit in stable condition. All sponge needle instrument counts correct. No complications. Estimated blood loss 20 cc. Plan for the patient is to be discharged home according to day surgery criteria when they were comfortable. Plan is to change the dressing daily at least for the first 2 postoperative days and then as needed. They should follow-up in the office within 1 to 2 days and I have also made an urgent referral to the infectious disease specialist and sent a message and verbal confirmation from Neetu in our office. I have also upon consultation with the inpatient pharmacist Daylin prescribed vancomycin as a preoperative antibiotics and Dalvance as postoperative antibiotics for MRSA coverage for the next 7 days with letting her know that the patient has liver disease. Cultures will need to be followed up on and close outpatient follow- up. Sutures will be removed at postoperative week 2. UDAY BALDERAS MD Feb 11, 2021 14:40
[2021-02-11] MEDS ORDERED: fentaNYL 100 MCG/2 ML INJECTION (J3010) IV PRN (14:45)
[2021-02-11] MEDS ORDERED: ONDANSETRON 4MG/2ML VIAL IV PRN ×2 (14:45→14:50)
[2021-02-11] MEDS ORDERED: LR 1,000 ML IV SCH ×2 (14:45→14:50)
[2021-02-11] MEDS ORDERED: oxyCODONE 5MG TAB PO PRN (14:45)
[2021-02-11] MEDS ORDERED: PERCOCET 5MG/325MG TAB PO PRN (14:50)
[2021-02-11] MEDS ORDERED: ACETAMINOPHEN TAB 650MG DOSE (2X325MG) PO PRN (14:50)
[2021-02-11] MEDS ORDERED: MORPHINE 2 MG/ML 1ML VIAL (J2270) IV PRN (14:50)
[2021-02-11] MEDS ORDERED: DALBAVANCIN 1,500 MG in D5W 250 ML IV ONE (16:00)
[2021-02-11] MEDS ORDERED: METOCLOPRAMIDE INJ 10MG/2ML VIAL (J2765 PER 1) IV ONE (17:40)
[2021-02-11 18:00] VITALS: BP 142/71
== END 2021-02-11 18:05 | disposition home or self-care (01) ==
LOC: M SDC 11:56
PROVIDERS: ATTEND Orthopaedic Surgery Sports Medicine
DX: T81.49XA Infection following a procedure, other surgical site, initial encounter (principal); K70.30 Alcoholic cirrhosis of liver without ascites; J44.9 Chronic obstructive pulmonary disease, unspecified; Z87.19 Personal history of other diseases of the digestive system; M50.30 Other cervical disc degeneration, unspecified cervical region; G47.9 Sleep disorder, unspecified; R79.89 Other specified abnormal findings of blood chemistry; I85.00 Esophageal varices without bleeding; F41.9 Anxiety disorder, unspecified; R06.83 Snoring; F17.210 Nicotine dependence, cigarettes, uncomplicated
CPT/HCPCS: 11042; 87070; 87075; 87077; 87186; J0875; J1100; J1170; J2250; J2405; J2765; J3010; J3370; U0002

== ENCOUNTER 2021-02-14 21:47 | Inpatient (IN) | payer OTHER ==
[~2021-02-14] VITALS: Ht 170.2 cm; Wt 116.2 kg
[~2021-02-14 21:47] MED LIST changes: -MIDAZOLAM INJ 2MG/2ML VIAL (J2250 PER 1MG) As Ordered ONE; -VANCOMYCIN HCL 1,000 MG, VIAL MATE ADAPTER 1 EACH in NS 250 ML IV ONE; -fentaNYL 100 MCG/2 ML INJECTION (J3010) As Ordered ONE
[2021-02-14] MEDS ORDERED: BACTDSTA PO (22:04)
[2021-02-14] MEDS ORDERED: GABA-283 PO (22:04)
[2021-02-14] MEDS ORDERED: CLONI1TA PO (22:04)
[2021-02-15] MEDS ORDERED: MORPHINE 2 MG/ML 1ML VIAL (J2270) IV ONE ×2 (02:00→05:05)
[2021-02-15 02:09] LABS: BASO % 0.5 % (0.0-1.0); EOS # 0.3 10^3/uL (0.0-0.5); EOS % 4.7 % (0.0-3.0); HEMATOCRIT 39.8 % (42.0-52.0); HEMOGLOBIN 13.4 g/dl (13.5-17.5); LYMPH # 1.9 10^3/uL (1.5-5.0); MEAN CORPUSCULAR HGB CONC 33.7 g/dl (32.0-36.5); MONO # 0.6 10^3/uL (0.0-0.8); MONO % 9.9 % (2.0-8.0); NEUTROPHILS % 51.6 % (36.0-66.0); RED BLOOD COUNT 4.47 10^6/uL (4.30-6.10); WHITE BLOOD COUNT 5.8 10^3/uL (4.0-10.0)
[2021-02-15 02:21] LABS: INR 1.21; PROTHROMBIN TIME 15.6 SECONDS (12.5-14.3)
[2021-02-15 02:22] LABS: PLATELET COUNT, AUTOMATED 82 10^3/uL (150-450)
[2021-02-15 02:52] LABS: ALBUMIN 3.3 GM/DL (3.2-5.2); ALT/SGPT 47 U/L (12-78); BILIRUBIN,DIRECT 0.5 MG/DL (0.0-0.2); BILIRUBIN,TOTAL 1.3 MG/DL (0.2-1.0); BLOOD UREA NITROGEN 4 MG/DL (7-18); CALCIUM LEVEL 8.1 MG/DL (8.5-10.1); CARBON DIOXIDE LEVEL 27 MEQ/L (21-32); CHLORIDE LEVEL 111 MEQ/L (98-107); CREATININE FOR GFR 0.57 MG/DL (0.70-1.30); ETHYL ALCOHOL (ETHANOL) 0.192 % (0.000-0.010); GLOMERULAR FILTRATION RATE > 60.0 (>60); GLUCOSE, FASTING 97 MG/DL (70-100); LIPASE 299 U/L (73-393); POTASSIUM SERUM 3.7 MEQ/L (3.5-5.1); SODIUM LEVEL 141 MEQ/L (136-145); TOTAL PROTEIN 6.7 GM/DL (6.4-8.2)
[2021-02-15] MEDS ORDERED: THIAMINE 200MG/2ML VIAL (J3411 PER 100MG) IV ONE (04:20)
[2021-02-15] MEDS ORDERED: FOLIC ACID 1 MG in NS 50 ML IV ONE (04:20)
[2021-02-15] MEDS ORDERED: LACTULOSE 20 GM/30 ML SYRUP UD PO ONE (04:20)
[2021-02-15] MEDS ORDERED: GABA-282 PO (04:57)
[2021-02-15] MEDS ORDERED: MILK175C6 PO (04:57)
[2021-02-15 05:34] LABS: RSV AMPLIFICATION NEGATIVE (NEGATIVE)
[2021-02-15] MEDS ORDERED: MOM 30ML SUSPENSION UDC PO PRN (05:35)
[2021-02-15] MEDS ORDERED: MAALOX 30 ML SUSP *UDC PO PRN (05:35)
--- NOTE | 2021-02-15 06:00 | HPEPDOC ---
[facility] Medical History & Physical Date of Admission Feb 15, 2021 Date of Service: Feb 15, 2021 History and Physical CHIEF COMPLAINT: ABDOMINAL PAIN HISTORY OF PRESENT ILLNESS: 35 yo M with a hx of etoh use disorder, alcoholic liver cirrhosis, portal hypertension, esophageal varies, depression, recent R carpal tunnel release and washout x 2 for possible site infection, presented to ER in an obtunded state, with c/o of severe diffuse abdominal pain worse in RUQ, severe R wrist pain and severe bilateral leg pain. On arrival patient appeared obtunded. Was fount to have a serum etoh level of 0.192. Ammonia level 55. No l eukocytos. No fever. Elevated total bili 1.3, d bili 0.5, improved from previous levels. ALP 123. He was given a dose of lactulose for hepatic encephalopathy. A CT abdomen pelvis as well as RUQ US were ordered. Patient states that he has been sober for the past 7 months, but had a binge episode for the past day, as he was self medicating for pain. I reviewed operative note from 02/11/[address] Mcgill. S/p 2nd repeat revision irrigation and debridement of the R wrist at site of carpal tunnel release in 12/10. Was given dose of IV vancomycin pre-operatively and was given a dose of Dalvance post-op for MRSA coverage, along with urgent referral to Dr. Edmonds. Patient has an rx for a 10 day course of bactrim, and has picked up the prescription but has not started to take the abx. Finally, patient follows with GI Dr. Funes of [facility] in [place], [place]. Clinic tel: [phone]. PAST MEDICAL HISTORY: Alcoholic liver cirrhosis Thrombocytopenia Etoh use disorder Portal HTN Esophageal varices PAST SURGICAL HISTORY: cholecystectomy SOCIAL HISTORY: active smoker, 1ppd etoh use disorder denies illicit drug use FAMILY HISTORY: Reports his half sister having liver disease, and drinks etoh as well. Also states his father had liver disease, but from cardiac problem, unable to specify ALLERGIES: Please see below. REVIEW OF SYSTEMS: 10 point review of system performed, relevant findings are noted in hpi. HOME MEDICATIONS: Please see below. PHYSICAL EXAMINATION: VITAL SIGNS: please see below General: NAD, comfortable HEENT: PERRLA, EOMI, sclerae clear Neck: supple, normal ROM, no JVD Respiratory: lungs CTAB, no wheeze, no rales, no crackles CVS: RRR, normal S1, S2, no murmurs Abdo: obese abdomen, diffuse pain to palpation worse in RUQ. Distended abdominal veins. Extremities: 1+ edema b/l, pulses 2+ MSK: no joint deformities, normal ROM Neuro: no focal neuro deficits, moving all 4 extremities, CN2-12 intact. Strength 5/5 in all 4 extremities. No nystagmus. Psych: calm, cooperative, AAO x 3 LABORATORY DATA: See below. IMAGING: ordered CT abdo, RUQ US and bilateral venous duplex MICROBIOLOGY: Please see below. ASSESSMENT: 35 yo M with a hx of etoh use disorder, alcoholic liver cirrhosis, portal hypertension, esophageal varies, depression, recent R carpal tunnel release and washout x 2 for possible site infection, presented to ER in an obtunded state, with c/o of severe diffuse abdominal pain worse in RUQ, severe R wrist pain and severe bilateral leg pain. AMS and encephalopathy likely 2/2 elevated ammonia level and acute etoh intoxication. Due to abdominal pain, plan for paracentesis to r/o SBP. Volume of ascites to be better characterized by CT abdo. . PLAN: Abdominal pain - given hx of alcoholic liver cirrhosis and prior admissions needing diagnostic and therapeutic paracentesis - last admtted for paracentesis in 12/2018, no SBP. Denies prior hx of SBP - does not have WBC elevation, is afebrile - complains of 8/10 pain in RUQ, now improved post morphine in ER - ordered CT abdo pelvis and RUQ US - fluid shift was detected on PE - will not start empiric ceftriaxone at this time; needs paracentesis to sent ascitic fluid for culture - D/w Dr. De Luna, he recommends IR consult for paracentesis on 02/16/21. To start PPI given site of pain in epigastrium and RUQ, possibly gastritis - f/u CT to assess for severity of varices. Hepatic encephalopathy/alcoholic liver cirrhosis - ammonia 55, increased from prior - given lactulose in ER - AMS also likely component of acute etoh intoxication - patient follows with GI Dr. Funes of [facility] in [place], [place]. Clinic tel: [phone]. - reports recent EGD, showing varices - does not currently take propranolol, and is not on spironolactone/furosemide R wrist pain - s/p 2nd revision debridement of R carpal tunnel release performed by Dr. Mcgill on 02/11/21 - was given vanco preop, and dalvance post op for MRSA coverage for 7 days, with referral to Dr. Edmonds - patient has a pill bottle of bactrim x 10 day course prescribed by Dr. Edmonds, but has not yet started meds. - I suspect given that dalvance provides MRSA coverage for 7 days, patient would have been instructed to start bactrim Rx on 02/18/21 - wound does not have surrounding erythema, bogginess, or drainage - patient is afebrile and without leukocytosis. - to obtain diagnostic paracentesis prior to starting bactim/ceftriaxone (see above) Etoh use disorder - BA level 0.192 - last drink 02/14/21 - CIWA protocol, B12, folate, MVT Chronic pain/bilateral foot pain - resume gabapentin - no obvious wounds, erythema - bilateral edema seen - will order venous duplex to r/o DVT Class III obesity, BMI 39.2 - complicating care DVT ppx: SCDs. TEDs. Vital Signs Vital Signs Date Time Temp Pulse Resp B/P (MAP) Pulse Ox O2 Delivery O2 Flow Rate FiO2 02/15/21 05:15 82 96 02/15/21 05:15 18 Room Air 02/15/21 05:00 134/69 (90) 02/15/21 04:00 97.9 Laboratory Data Labs 24H Laboratory Tests 2 02/15/21 01:36: Immature Granulocyte % (Auto) 0.3, Neutrophils (%) (Auto) 51.6, Lymphocytes (%) (Auto) 33.0, Monocytes (%) (Auto) 9.9H, Eosinophils (%) (Auto) 4.7H, Basophils (%) (Auto) 0.5, Neutrophils # (Auto) 3.0, Lymphocytes # (Auto) 1.9, Monocytes # (Auto) 0.6, Eosinophils # (Auto) 0.3, Basophils # (Auto) 0.0, Nucleated Red Blood Cells % (auto) 0.0, Immature Platelet Fraction 4.7, Prothrombin Time 15.6H, Prothromb Time International Ratio 1.21, Urine Color YELLOW, Urine Appearance HAZY, Urine pH 6.0, Urine Specific [place] 1.005, Urine Protein NEGATIVE, Urine Glucose (UA) NEGATIVE, Urine Ketones NEGATIVE, Urine Blood NEGATIVE, Urine Nitrite NEGATIVE, Urine Bilirubin NEGATIVE, Urine Urobilinogen 2.0H, Urine Leukocyte Esterase NEGATIVE, Urine WBC (Auto) 1, Urine RBC (Auto) 0, Urine Hyaline Casts (Auto) 0, Urine Bacteria (Auto) NEGATIVE, Urine Squamous Epithelial Cells 0, Urine Mucus (Auto) SMALL, Urine Sperm (Auto) , Anion Gap 3L, Glomerular Filtration Rate > 60.0, Lactic Acid Level 1.4, Calcium Level 8.1L, Total Bilirubin 1.3H, Direct Bilirubin 0.5H, Aspartate Amino Transf (AST/SGOT) 49H, Alanine Aminotransferase (ALT/SGPT) 47, Alkaline Phosphatase 123H, Ammonia 55H, Total Protein 6.7, Albumin 3.3, Albumin/Globulin Ratio 1.0, Lipase 299, Eth yl Alcohol Level 0.192H 02/15/21 04:36: CBC/BMP Laboratory Tests 02/15/21 01:36 Microbiology Microbiology 02/15/21 Blood Culture, Received Pending 02/15/21 Blood Culture, Received Pending Home Medications Scheduled Clonidine Hcl (Clonidine HCl) 0.1 Mg Tablet, 0.3 MG PO QPM Gabapentin (Gabapentin) 300 Mg Capsule, 300 MG PO TID Milk Thistle Seed Extract (Milk Thistle) 175 Mg Capsule, 175 MG PO DAILY Allergies Coded Allergies: No Known Allergies (Unverified , 02/11/21) A-FIB/CHADSVASC A-FIB History Current/History of A-Fib/PAF?: No BENNIE WHITT MD Feb 15, 2021 06:00
[2021-02-15] MEDS ORDERED: LORazepam 2 MG TAB PO PRN (06:30)
--- NOTE | 2021-02-15 06:35 | REPVR ---
PROCEDURE INFORMATION: Exam: US Abdomen, Limited; Right Upper Quadrant Exam date and time: 02/15/2021 5:19 AM Age: 35 years old Clinical indication: Abdominal pain; Flank; Right upper quadrant (ruq); Prior surgery; Surgery date: 6+ months; Surgery type: Cholecystectomy TECHNIQUE: Imaging protocol: US abdomen. Real time ultrasound with image documentation. Limited exam focused on the right upper quadrant. COMPARISON: Abdominal/pelvic CT 02/15/21 FINDINGS: Liver: Lobulated morphology of the liver in a pattern of cirrhosis. Gallbladder: Status post cholecystectomy. Common bile duct: Common bile duct upper limits of normal in caliber measuring 7 mm. Pancreas: No focal mass or ductal dilatation in the visualized pancreas, which is partially obscured by bowel gas. Right kidney: Normal right renal morphology. No hydronephrosis. Other vasculature: Additional venous varices demonstrated on CT. IMPRESSION: Cirrhosis and venous varices. Electronically signed by: Johnny Hunter On 02/15/2021 06:35:00 AM
--- NOTE | 2021-02-15 06:38 | REPVR ---
PROCEDURE INFORMATION: Exam: CT Abdomen And Pelvis Without Contrast Exam date and time: 02/15/2021 4:44 AM Age: 35 years old Clinical indication: Abdominal pain; Generalized TECHNIQUE: Imaging protocol: Computed tomography of the abdomen and pelvis without contrast. Radiation optimization: All CT scans at this facility use at least one of these dose optimization techniques: automated exposure control; mA and/or kV adjustment per patient size (includes targeted exams where dose is matched to clinical indication); or iterative reconstruction. COMPARISON: Abdomen, limited US 01/24/2019 2:02 PM FINDINGS: Detailed evaluation of the abdominal and pelvic viscera is somewhat limited in the absence of intravenous contrast. Lungs: Localized airspace disease in the posterior segment of the right lower lobe. Liver: Fatty infiltration and lobulated morphology of the liver, in a pattern of cirrhosis. Gallbladder and bile ducts: Status post cholecystectomy. Pancreas: No pancreatic mass or ductal dilatation. Spleen: Enlarged spleen measuring 14.4 cm in length. Adrenal glands: Unremarkable adrenals. Kidneys and ureters: Normal renal morphology. No hydronephrosis. Stomach and bowel: No significant small bowel dilatation. Mild rectal wall thickening. Prominent stool and diverticula, without pericolonic inflammation. Appendix: No acute appendicitis. Intraperitoneal space: No significant free fluid. Vasculature: Normal caliber of the abdominal aorta. Venous varices. Lymph nodes: Subcentimeter lymph nodes. Urinary bladder: Unremarkable bladder. Reproductive: Unremarkable as visualized. Bones/joints: Schmorl's nodes . Soft tissues: Small fat containing umbilical hernia. IMPRESSION: 1. Cirrhosis, splenomegaly, and venous varices. 2. Additional findings as described above. Electronically signed by: Johnny Hunter On 02/15/2021 06:38:04 AM
--- NOTE | 2021-02-15 06:52 | REPVR ---
PROCEDURE INFORMATION: Exam: US Duplex Lower Extremity Veins, Bilateral Exam date and time: 02/15/2021 6:44 AM Age: 35 years old Clinical indication: Swelling (edema) of limb; Lower extremity, bilateral; Additional info: R/O dvt TECHNIQUE: Imaging protocol: Real-time duplex ultrasound of the extremities with 2-D hernandes scale, color Doppler flow and spectral waveform analysis with image documentation. Complete exam focused on the bilateral lower extremity veins. COMPARISON: CT ABD PELVIS W/O CONTRAST 02/15/2021 4:43 AM FINDINGS: Right deep veins: No deep venous thrombosis in the visualized right common femoral, profunda femoris, superficial femoral, or popliteal veins. Right superficial veins: Saphenofemoral junction is patent without thrombus. Left deep veins: No deep venous thrombosis in the visualized left common femoral, profunda femoris, superficial femoral, or popliteal veins. Left superficial veins: Saphenofemoral junction is patent without thrombus. Soft tissues: Unremarkable. IMPRESSION: No deep venous thrombosis in the visualized bilateral lower extremities. Electronically signed by: Johnny Hunter On 02/15/2021 06:51:00 AM
[2021-02-15] MEDS ORDERED: GI COCKTAIL 50ML BTL(HYOSCYAMINE/MAALOX/LIDOCAINE VISCOUS)(1:3:1) PO ONE (07:30)
[2021-02-15] MEDS: PANTOPRAZOLE 40MG VIAL (C9113 PER 1) IV SCH (07:35)
[2021-02-15] MEDS: ACETAMINOPHEN TAB 650MG DOSE (2X325MG) PO PRN ×2 (07:40→21:13)
[2021-02-15 08:35] VITALS: BP 147/76
[2021-02-15] MEDS: DOCUSATE SODIUM 100MG CAPSULE PO SCH ×2 (09:00→21:11)
[2021-02-15] MEDS ORDERED: PERCOCET 5MG/325MG TAB PO PRN (09:15)
[2021-02-15] MEDS: MULTIVITAMINS/MINERALS THERAP 1 TAB PO SCH (09:36)
[2021-02-15 10:35] VITALS: BP 147/76
--- NOTE | 2021-02-15 11:02 | IPNPDOC ---
Text Note Date of Service The patient was seen on 02/15/21. NOTE Subjective: Patient complains of bilateral legs pain, moderate diffuse abdominal pain more in the right upper quadrant Objective: GENERAL APPEARANCE: NAD HEENT: no scleral icterus, no JVD, EOMI CARDIOVASCULAR: S1S2 LUNGS: CTA ABDOMEN: soft & mild diffuse tenderness w palpitation, moderately distended MUSCULOSKELETAL: no cyanosis, +1 nonpitting edema of lower extremities INTEGUMENT: no generalized pallor, right wrist post surgical wound clean no pus NEUROLOGICAL: cranial nerve function from 2-12 intact intact, follows commands, speech not dysarthric Assessment and plan Patient is 35 yo M with a hx of etoh use disorder, alcoholic liver cirrhosis, portal hypertension, esophageal varies, depression, recent R carpal tunnel release and washout x 2 for possible site infection, presented to ER in an obtunded state, with c/o of severe diffuse abdominal pain worse in RUQ, severe R wrist pain and severe bilateral leg pain. AMS and encephalopathy likely 2/2 elevated ammonia level and acute etoh intoxication. Abdominal pain Secondary to alcoholic gastritis PPI CT scan showed Cirrhosis, splenomegaly, and venous varices Will proceed with paracentesis on Tuesday Hemoglobin is stable Pain management Metabolic encephalopathy/liver cirrhosis/alcoholic hepatitis Most likely secondary to alcoholic liver cirrhosis Started lactulose, rifaximin Continue to monitor PT/INR Child Cortez score 9 Most likely patient will need evaluation for liver transplant, however patient continues to drink alcohol patient follows with GI Dr. Funes of [facility] in [place], [place]. Clinic tel: [phone]. - reports recent EGD, showing varices Hemoglobin stable R wrist pain s/p 2nd revision debridement of R carpal tunnel release performed by Dr. Mcgill on 02/11/21 was given vanco preop, and dalvance post op for MRSA coverage for 7 days, with referral to Dr. Edmonds patient has a pill bottle of bactrim x 10 day course prescribed by Dr. Edmonds, but has not yet started meds. EtOH abuse/anxiety [facility] protocol Chronic pain/bilateral foot pain - resume gabapentin - no obvious wounds, erythema DVT ultrasound negative Class III obesity, BMI 39.2 - complicating care VS,Fishbone, I+O VS, Fishbone, I+O Laboratory Tests 02/15/21 01:36 Vital Signs Date Time Temp Pulse Resp B/P (MAP) Pulse Ox O2 Delivery O2 Flow Rate FiO2 02/15/21 10:35 87 147/76 02/15/21 10:24 16 02/15/21 08:35 97.8 97 Room Air I&O- Last 24 Hours up to 6 AM 02/15/21 06:00 Intake Total 50.2 ml Balance 50.2 ml GUDELIA FREITAS Feb 15, 2021 11:02
[2021-02-15] MEDS: SPIRONOLACTONE 25 MG TAB PO SCH (11:11)
[2021-02-15] MEDS ORDERED: LORazepam 1 MG TAB PO ONE (11:15)
[2021-02-15 11:47] LABS: INR 1.23; PROTHROMBIN TIME 15.8 SECONDS (12.5-14.3)
[2021-02-15 14:00] VITALS: BP 149/77
[2021-02-15] MEDS: PERCOCET 5MG/325MG TAB PO PRN ×2 (14:06→22:40)
[2021-02-15 15:01] VITALS: BP 149/77
[2021-02-15] MEDS: LACTULOSE 20 GM/30 ML SYRUP UD PO SCH ×2 (16:14→21:00)
[2021-02-15] MEDS: FUROSEMIDE 40MG/4ML VIAL (J1940) IV SCH (16:23)
[2021-02-15] MEDS: LORazepam 1 MG TAB PO PRN ×2 (16:41→21:13)
[2021-02-15] MEDS ORDERED: cloNIDine 0.1MG TABLET PO SCH (21:00)
[2021-02-15] MEDS: THIAMINE 100 MG TAB PO SCH (21:11)
[2021-02-15 22:00] VITALS: BP 147/85
[2021-02-15 23:00] VITALS: BP 143/80
[2021-02-16 00:07] VITALS: BP 143/80
[2021-02-16] MEDS: GABAPENTIN 300 MG CAP PO SCH ×3 (00:07→15:51)
[2021-02-16] MEDS: ONDANSETRON 4MG/2ML VIAL IV PRN ×2 (00:15→12:47)
[2021-02-16] MEDS: PERCOCET 5MG/325MG TAB PO PRN ×3 (05:19→15:52)
[2021-02-16 06:00] VITALS: BP 144/89
[2021-02-16] MEDS: PANTOPRAZOLE 40MG VIAL (C9113 PER 1) IV SCH (06:09)
[2021-02-16 06:27] LABS: BASO % 0.7 % (0.0-1.0); EOS # 0.2 10^3/uL (0.0-0.5); HEMATOCRIT 37.4 % (42.0-52.0); HEMOGLOBIN 12.5 g/dl (13.5-17.5); LYMPH # 0.9 10^3/uL (1.5-5.0); LYMPH % 29.9 % (24.0-44.0); MEAN CORPUSCULAR HEMOGLOBIN 30.2 pg (27.0-33.0); MEAN CORPUSCULAR HGB CONC 33.4 g/dl (32.0-36.5); MEAN CORPUSCULAR VOLUME 90.3 fl (80.0-96.0); MONO # 0.4 10^3/uL (0.0-0.8); MONO % 14.4 % (2.0-8.0); NEUTROPHILS # 1.5 10^3/uL (1.5-8.5); NEUTROPHILS % 49.7 % (36.0-66.0); RED BLOOD COUNT 4.14 10^6/uL (4.30-6.10)
[2021-02-16 06:29] LABS: PLATELET COUNT, AUTOMATED 59 10^3/uL (150-450)
[2021-02-16 06:59] LABS: ALBUMIN 2.9 GM/DL (3.2-5.2); ALT/SGPT 39 U/L (12-78); BILIRUBIN,TOTAL 1.3 MG/DL (0.2-1.0); BLOOD UREA NITROGEN 10 MG/DL (7-18); CALCIUM LEVEL 8.3 MG/DL (8.5-10.1); CARBON DIOXIDE LEVEL 28 MEQ/L (21-32); CHLORIDE LEVEL 107 MEQ/L (98-107); CREATININE FOR GFR 0.71 MG/DL (0.70-1.30); GLOMERULAR FILTRATION RATE > 60.0 (>60); GLUCOSE, FASTING 124 MG/DL (70-100); MAGNESIUM LEVEL 1.9 MG/DL (1.8-2.4); POTASSIUM SERUM 3.6 MEQ/L (3.5-5.1); SODIUM LEVEL 142 MEQ/L (136-145)
[2021-02-16 07:00] VITALS: BP 144/86
[2021-02-16] MEDS ORDERED: FOLIC ACID 1 MG TAB PO SCH (09:00)
[2021-02-16] MEDS ORDERED: POTASSIUM CHLORIDE 10 MEQ SR TABLET PO ONE (09:00)
[2021-02-16] MEDS: THIAMINE 100 MG TAB PO SCH (09:29)
[2021-02-16] MEDS: SPIRONOLACTONE 25 MG TAB PO SCH (09:30)
[2021-02-16] MEDS: DOCUSATE SODIUM 100MG CAPSULE PO SCH (09:30)
[2021-02-16] MEDS: LACTULOSE 20 GM/30 ML SYRUP UD PO SCH ×2 (09:30→15:51)
[2021-02-16] MEDS: MULTIVITAMINS/MINERALS THERAP 1 TAB PO SCH (09:30)
[2021-02-16 11:11] LABS: INR 1.2; PROTHROMBIN TIME 15.5 SECONDS (12.5-14.3)
[2021-02-16] MEDS: LORazepam 1 MG TAB PO PRN (12:47)
--- NOTE | 2021-02-16 12:53 | IPNPDOC ---
Text Note Date of Service The patient was seen on 02/16/21. NOTE Subjective: No any acute events overnight . No fever or chills. Abdominal pain subsided Objective: GENERAL APPEARANCE: NAD HEENT: no scleral icterus, no JVD, EOMI CARDIOVASCULAR: S1S2 LUNGS: CTA ABDOMEN: soft & nontender, moderately distended MUSCULOSKELETAL: no cyanosis, +1 nonpitting edema of lower extremities INTEGUMENT: no generalized pallor, right wrist post surgical wound clean no pus NEUROLOGICAL: cranial nerve function from 2-12 intact intact, follows commands, speech not dysarthric Assessment and plan Patient is 35 yo M with a hx of etoh use disorder, alcoholic liver cirrhosis, portal hypertension, esophageal varies, depression, recent R carpal tunnel relea se and washout x 2 for possible site infection, presented to ER in an obtunded state, with c/o of severe diffuse abdominal pain worse in RUQ, severe R wrist pain and severe bilateral leg pain. AMS and encephalopathy likely 2/2 elevated ammonia level and acute etoh intoxication. Abdominal pain Secondary to alcoholic gastritis PPI CT scan showed Cirrhosis, splenomegaly, and venous varices paracentesis today Hemoglobin is stable Pain management Metabolic encephalopathy/liver cirrhosis/alcoholic hepatitis Most likely secondary to alcoholic liver cirrhosis Started lactulose, rifaximin Continue to monitor PT/INR Child Cortez score 9 Most likely patient will need evaluation for liver transplant, however patient continues to drink alcohol patient follows with GI Dr. Funes of [facility] in [place], [place]. Clinic tel: [phone]. - reports recent EGD, showing varices Hemoglobin stable R wrist pain s/p 2nd revision debridement of R carpal tunnel release performed by Dr. Edu diaz on 02/11/21 was given vanco preop, and dalvance post op for MRSA coverage for 7 days, with referral to Dr. Edmonds patient has a pill bottle of bactrim x 10 day course prescribed by Dr. Edmonds, but has not yet started meds. EtOH abuse/anxiety [facility] protocol Chronic pain/bilateral foot pain - resume gabapentin - no obvious wounds, erythema DVT ultrasound negative Class III obesity, BMI 39.2 - complicating care VS,Fishbone, I+O VS, Fishbone, I+O Laboratory Tests 02/16/21 06:10 Vital Signs Date Time Temp Pulse Resp B/P (MAP) Pulse Ox O2 Delivery O2 Flow Rate FiO2 02/16/21 10:24 18 02/16/21 09:31 Room Air 02/16/21 07:00 78 144/86 02/16/21 06:00 97.2 96 02/16/21 05:49 0.5 I&O- Last 24 Hours up to 6 AM 02/16/21 06:00 Intake Total 2415 ml Output Total 175 ml Balance 2240 ml GUDELIA FREITAS DO Feb 16, 2021 12:53
[2021-02-16 14:00] VITALS: BP 145/85
[2021-02-16] MEDS: FUROSEMIDE 40MG/4ML VIAL (J1940) IV SCH (15:51)
[2021-02-16] MEDS ORDERED: SODIUM BICARBONATE 8.4% INJ 50MEQ 50 ML VIAL As Ordered ONE (16:37)
--- NOTE | 2021-02-16 16:51 | REP ---
INDICATION: ascites. COMPARISON: None. TECHNIQUE: Six ultrasonographic images were obtained 3 on the right and 3 on the left to assess for ascites prior to possible paracentesis. FINDINGS: There is no ascites. IMPRESSION: Insufficient amount of fluid to perform paracentesis. <Electronically signed by Ang Estrada > 02/16/21 [id number]
[2021-02-16] MEDS ORDERED: LASI40TA9 PO (17:11)
[2021-02-16] MEDS ORDERED: SPIR-10 PO (17:11)
[2021-02-16] MEDS ORDERED: OMEP40CA4 PO (17:11)
[2021-02-16] MEDS ORDERED: LACT20EL PO (17:11)
--- NOTE | 2021-02-16 17:20 | DS.PDOC ---
Discharge Summary General Date of Admission Feb 15, 2021 at 05:33 Date of Discharge 02/16/21 Discharge Summary PROCEDURES PERFORMED DURING STAY: [None]. ADMITTING DIAGNOSES: Abdominal pain Metabolic encephalopathy/liver cirrhosis/alcoholic hepatitis R wrist pain EtOH abuse/anxiety Class III obesity, BMI 39.2 Chronic pain/bilateral foot pain DISCHARGE DIAGNOSES: Abdominal pain Metabolic encephalopathy/liver cirrhosis/alcoholic hepatitis R wrist pain EtOH abuse/anxiety Class III obesity, BMI 39.2 Chronic pain/bilateral foot pain COMPLICATIONS/CHIEF COMPLAINT: Alcoholic Cirrhosis Of Liver W/ Ascites. HISTORY OF PRESENT ILLNESS: Patient is 35 yo M with a hx of etoh use disorder, alcoholic liver cirrhosis, portal hypertension, esophageal varies, depression, recent R carpal tunnel release and washout x 2 for possible site infection, pres ented to ER in an obtunded state, with c/o of severe diffuse abdominal pain worse in RUQ, severe R wrist pain and severe bilateral leg pain. AMS and encephalopathy likely 2/2 elevated ammonia level and acute etoh intoxication. HOSPITAL COURSE: During the hospital stay the following issue addressed Abdominal pain Secondary to alcoholic gastritis PPI CT scan showed Cirrhosis, splenomegaly, and venous varices paracentesis was not done, negative for fluid Hemoglobin is stable Pain management Metabolic encephalopathy/liver cirrhosis/alcoholic hepatitis Most likely secondary to alcoholic liver cirrhosis Started lactulose, rifaximin Continue to monitor PT/INR Child Cortez score 9 Most likely patient will need evaluation for liver transplant, however patient continues to drink alcohol patient follows with GI Dr. Funes of [facility] in [place], [place]. Clinic tel: [phone]. - reports recent EGD, showing varices Hemoglobin stable R wrist pain s/p 2nd revision debridement of R carpal tunnel release performed by Dr. Mcgill on 02/11/21 was given vanco preop, and dalvance post op for MRSA coverage for 7 days, with referral to Dr. Edmonds patient has a pill bottle of bactrim x 10 day course prescribed by Dr. Edmonds, but has not yet started meds. EtOH abuse/anxiety [facility] protocol Chronic pain/bilateral foot pain - resume gabapentin - no obvious wounds, erythema DVT ultrasound negative Class III obesity, BMI 39.2 - complicating care DISCHARGE MEDICATIONS: Please see below. ALLERGIES: Please see below. PHYSICAL EXAMINATION ON DISCHARGE: VITAL SIGNS: Please see below. GENERAL APPEARANCE: NAD HEENT: no scleral icterus, no JVD, EOMI CARDIOVASCULAR: S1S2 LUNGS: CTA ABDOMEN: soft & nontender, moderately distended MUSCULOSKELETAL: no cyanosis, +1 nonpitting edema of lower extremities INTEGUMENT: no generalized pallor, right wrist post surgical wound clean no pus NEUROLOGICAL: cranial nerve function from 2-12 intact intact, follows commands, speech not dysarthric LABORATORY DATA: Please see below. IMAGING: [facility] NAME: JULITO NAJERA DATE OF : 1985 BUSINESS NUMBER: [id number] AGE: 35 SEX: M REPORT #: [id number] ROOM: M ED TECHNOLOGIST: ABDIAS DOCTOR: GIANNA HUANG MD Ordered for Date&Time: 02/15/21433 cc: [~ rep ct ivnm] Service Date&Time: 02/15/21443 This report is in Signed status. Interpretation performed by [facility]. Thank you for having your radiology procedures performed at [facility] RADIOLOGY REPORT Date&Time printed: [~ rep prt dt last] [~ rep prt tm last] Page 2 of 2 [place] [address] RADIOLOGY REPORT This report is in Signed status. Interpretation performed by [facility]. Thank you for having your radiology procedures performed at [facility] RADIOLOGY REPORT Date&Time printed: [~ rep prt dt last] [~ rep prt tm last] Page 1 of 2 NAME: JULITO NAJERA DATE OF : 1985 BUSINESS NUMBER: [id number] AGE: 35 SEX: M REPORT #: [id number] ROOM: ED TECHNOLOGIST: ABDIAS DOCTOR: GIANNA HUANG MD Ordered for Date&Time: 02/15/21433 cc: [~ rep ct ivnm] Service Date&Time: 02/15/21443 EXAMINATION REQUESTED: CT ABD & PELVIS W/O CONTRAST REASON FOR PATIENT VISIT: ALTERED MENTAL STATUS REASON FOR EXAMINATION: abdominal pain PROCEDURE INFORMATION: Exam: CT Abdomen And Pelvis Without Contrast Exam date and time: 02/15/2021 4:44 AM Age: 35 years old Clinical indication: Abdominal pain; Generalized TECHNIQUE: Imaging protocol: Computed tomography of the abdomen and pelvis without contrast. Radiation optimization: All CT scans at this facility use at least one of these dose optimization techniques: automated exposure control; mA and/or kV adjustment per patient size (includes targeted exams where dose is matched to clinical indication); or iterative reconstruction. COMPARISON: Abdomen, limited US 01/24/2019 2:02 PM FINDINGS: Detailed evaluation of the abdominal and pelvic viscera is somewhat limited in the absence of intravenous contrast. Lungs: Localized airspace disease in the posterior segment of the right lower lobe. Liver: Fatty infiltration and lobulated morphology of the liver, in a pattern of cirrhosis. Gallbladder and bile ducts: Status post cholecystectomy. Pancreas: No pancreatic mass or ductal dilatation. Spleen: Enlarged spleen measuring 14.4 cm in length. Adrenal glands: Unremarkable adrenals. Kidneys and ureters: Normal renal morphology. No hydronephrosis. Stomach and bowel: No significant small bowel dilatation. Mild rectal wall thickening. Prominent stool and diverticula, without pericolonic inflammation. Appendix: No acute appendicitis. Intraperitoneal space: No significant free fluid. Vasculature: Normal caliber of the abdominal aorta. Venous varices. Lymph nodes: Subcentimeter lymph nodes. Urinary bladder: Unremarkable bladder. Reproductive: Unremarkable as visualized. Bones/joints: Schmorl's nodes . Soft tissues: Small fat containing umbilical hernia. IMPRESSION: 1. Cirrhosis, splenomegaly, and venous varices. 2. Additional findings as described above. Electronically signed by: Johnny Hunter On 02/15/2021 06:38:04 AM DD: JOHNNY HUNTER MD 02/15/21 0444 DT: SOLANGE 02/15/2138 DS: FABRICE 02/15/21 06 [~ rep ct labl] PROGNOSIS: Fair ACTIVITY: [As tolerated]. DIET: Regular DISCHARGE INSTRUCTIONS: Stop drinking alcohol ITEMS TO FOLLOWUP ON ON OUTPATIENT: Follow-up with GI team, PCP DISCHARGE CONDITION: [Stable]. TIME SPENT ON DISCHARGE: 40minutes. Vital Signs/I&Os Vital Signs Date Time Temp Pulse Resp B/P (MAP) Pulse Ox O2 Delivery O2 Flow Rate FiO2 02/16/21 16:22 18 02/16/21 14:00 97.7 71 145/85 (105) 96 Room Air 02/16/21 05:49 0.5 I&O- Last 24 Hours up to 6 AM 02/16/21 06:00 Intake Total 2415 ml Output Total 175 ml Balance 2240 ml Laboratory Data Labs 24H Laboratory Tests 2 02/16/21 06:10: Immature Granulocyte % (Auto) 0.3, Neutrophils (%) (Auto) 49.7, Lymphocytes (%) (Auto) 29.9, Monocytes (%) (Auto) 14.4H, Eosinophils (%) (Auto) 5.0H, Basophils (%) (Auto) 0.7, Neutrophils # (Auto) 1.5, Lymphocytes # (Auto) 0.9L, Monocytes # (Auto) 0.4, Eosinophils # (Auto) 0.2, Basophils # (Auto) 0.0, Nucleated Red Blood Cells % (auto) 0.0, Immature Platelet Fraction 4.4, Anion Gap 7L, Glomerular Filtration Rate > 60.0, Calcium Level 8.3L, Magnesium Level 1.9, Total Bilirubin 1.3H, Aspartate Amino Transf (AST/SGOT) 38H, Alanine Aminotransferase (ALT/SGPT) 39, Alkaline Phosphatase 123H, Total Protein 6.0L, Albumin 2.9L, Albumin/Globulin Ratio 0.9 02/16/21 10:45: Prothrombin Time 15.5H, Prothromb Time International Ratio 1.20 CBC/BMP Laboratory Tests 02/16/21 06:10 Microbiology Microbiology 02/15/21 Blood Culture - Preliminary, Resulted No growth after 24 hours . All specim... 02/15/21 Blood Culture - Preliminary, Resulted No growth after 24 hours . All specim... Discharge Medications Scheduled Clonidine Hcl (Clonidine HCl) 0.1 Mg Tablet, 0.3 MG PO QPM, (Reported) Furosemide (Lasix) 40 Mg Tablet, 40 MG PO DAILY Gabapentin (Gabapentin) 300 Mg Capsule, 300 MG PO TID, (Reported) Lactulose (Lactulose) 10 Gm/15 Ml Solution, 30 ML PO TID Milk Thistle Seed Extract (Milk Thistle) 175 Mg Capsule, 175 MG PO DAILY, (Reported) Omeprazole (Omeprazole) 40 Mg Capsule.dr, 1 CAP PO DAILY Spironolactone (Spironolactone) 25 Mg Tablet, 25 MG PO DAILY Allergies Coded Allergies: No Known Allergies (Unverified , 02/11/21) GUDELIA FREITAS DO Feb 16, 2021 17:20
== END 2021-02-16 18:00 | disposition home or self-care (01) | DRG 280 ==
LOC: M ED 21:47 → M ED INP 02-15 05:33 → ENRESERVTM 02-15 07:54 → ENRESERVDT 02-15 07:54 → M MSPAV 02-15 08:35
PROVIDERS: ADMIT Family Medicine; ATTEND Internal Medicine
DX: K70.40 Alcoholic hepatic failure without coma (principal); G93.41 Metabolic encephalopathy; K76.6 Portal hypertension; I85.00 Esophageal varices without bleeding; K29.20 Alcoholic gastritis without bleeding; F10.10 Alcohol abuse, uncomplicated; F17.210 Nicotine dependence, cigarettes, uncomplicated; E66.9 Obesity, unspecified; Z68.39 Body mass index [BMI] 39.0-39.9, adult; M25.572 Pain in left ankle and joints of left foot; M25.571 Pain in right ankle and joints of right foot; M25.531 Pain in right wrist; Z20.822 Contact with and (suspected) exposure to COVID-19; Z79.899 Other long term (current) drug therapy; F32.9 Major depressive disorder, single episode, unspecified; K70.30 Alcoholic cirrhosis of liver without ascites

== ENCOUNTER → 2022-02-15 | Outpatient (CLI) | payer OTHER ==
[~2022-02-15] MED LIST changes: +BACTDSTA PO; +CLONI1TA PO; +GABA-282 PO; +GABA-283 PO; +LACT20EL PO; +MILK175C6 PO; +OMEP40CA4 PO; +SPIR-10 PO
== END ==
LOC: M OUTALCOH 08:07
PROVIDERS: ATTEND Psychiatry & Neurology Psychiatry
DX: Z03.89 Encounter for observation for other suspected diseases and conditions ruled out (principal)

== ENCOUNTER 2022-04-28 11:17 | Emergency (ER) | payer OTHER ==
[~2022-04-28] VITALS: Ht 170.2 cm; Wt 128.5 kg
[2022-04-28] MEDS ORDERED: SERT-141 PO (11:42)
[2022-04-28 13:35] LABS: BASO % 0.7 % (0.0-1.0); EOS % 3.8 % (0.0-3.0); HEMATOCRIT 49.7 % (42.0-52.0); HEMOGLOBIN 16.6 g/dl (13.5-17.5); LYMPH % 26.3 % (24.0-44.0); MEAN CORPUSCULAR HEMOGLOBIN 31.3 pg (27.0-33.0); MEAN CORPUSCULAR HGB CONC 33.4 g/dl (32.0-36.5); MEAN CORPUSCULAR VOLUME 93.8 fl (80.0-96.0); MONO % 8.8 % (2.0-8.0); NEUTROPHILS % 60.2 % (36.0-66.0); PLATELET COUNT, AUTOMATED 109 10^3/uL (150-450); WHITE BLOOD COUNT 5.6 10^3/uL (4.0-10.0)
[2022-04-28 13:36] LABS: EOS # 0.2 10^3/uL (0.0-0.5); LYMPH # 1.5 10^3/uL (1.5-5.0); MONO # 0.5 10^3/uL (0.0-0.8); NEUTROPHILS # 3.4 10^3/uL (1.5-8.5)
[2022-04-28 13:45] LABS: INR 1.13
[2022-04-28 14:08] LABS: ALBUMIN 3.7 GM/DL (3.2-5.2); ALT/SGPT 41 U/L (12-78); BILIRUBIN,TOTAL 1.4 MG/DL (0.2-1.0); BLOOD UREA NITROGEN 7 MG/DL (7-18); CALCIUM LEVEL 9.2 MG/DL (8.5-10.1); CARBON DIOXIDE LEVEL 26 MEQ/L (21-32); CHLORIDE LEVEL 109 MEQ/L (98-107); CK-MB VALUE MASS 2.2 NG/ML (<3.6); CREATININE FOR GFR 0.69 MG/DL (0.70-1.30); GLOMERULAR FILTRATION RATE > 60.0 (>60); GLUCOSE, FASTING 87 MG/DL (70-100); MB/CK RELATIVE INDEX 1.14 (< OR =4); POTASSIUM SERUM 4.2 MEQ/L (3.5-5.1); SODIUM LEVEL 139 MEQ/L (136-145); TOTAL PROTEIN 7.6 GM/DL (6.4-8.2)
[2022-04-28 15:15] VITALS: BP 157/90
[2022-04-28] MEDS ORDERED: MECLIZINE 25 MG TABLET PO ONE (15:25)
[2022-04-28] MEDS ORDERED: ONDANSETRON 4MG ORAL DISINTEGRATING TAB PO ONE (15:25)
[2022-04-28] MEDS ORDERED: physical therapy (15:42)
[2022-04-28] MEDS ORDERED: MECL50TA PO (15:44)
[2022-04-28] MEDS ORDERED: ONDA4TAB6 PO (15:44)
== END 2022-04-28 16:12 | disposition home or self-care (01) ==
LOC: M ED 11:17
DX: H81.10 Benign paroxysmal vertigo, unspecified ear (principal); I10 Essential (primary) hypertension; K74.60 Unspecified cirrhosis of liver; Z79.899 Other long term (current) drug therapy

== ENCOUNTER 2022-07-29 14:11 | Observation (INO) | payer OTHER ==
[~2022-07-29] VITALS: Ht 170.2 cm; Wt 137.0 kg
[~2022-07-29 14:11] MED LIST changes: +MECL50TA PO; +ONDA4TAB6 PO; +SERT-141 PO; +physical therapy
[2022-07-29] MEDS ORDERED: BUSP5TA PO (14:51)
[2022-07-29] MEDS ORDERED: TREL1AER INH (14:51)
[2022-07-29 18:17] LABS: BASO % 0.5 % (0.0-1.0); EOS # 0.2 10^3/uL (0.0-0.5); EOS % 3.7 % (0.0-3.0); HEMATOCRIT 49.7 % (42.0-52.0); HEMOGLOBIN 16.7 g/dl (13.5-17.5); LYMPH # 2.1 10^3/uL (1.5-5.0); LYMPH % 32.6 % (24.0-44.0); MEAN CORPUSCULAR HEMOGLOBIN 30.9 pg (27.0-33.0); MEAN CORPUSCULAR HGB CONC 33.6 g/dl (32.0-36.5); MONO # 0.6 10^3/uL (0.0-0.8); MONO % 9.1 % (2.0-8.0); NEUTROPHILS # 3.5 10^3/uL (1.5-8.5); NEUTROPHILS % 53.9 % (36.0-66.0); PLATELET COUNT, AUTOMATED 125 10^3/uL (150-450); WHITE BLOOD COUNT 6.5 10^3/uL (4.0-10.0)
[2022-07-29 18:26] LABS: INR 1.05; PROTHROMBIN TIME 13.9 SECONDS (12.5-14.5)
[2022-07-29 18:42] LABS: BILIRUBIN,DIRECT 0.5 MG/DL (<0.4)
[2022-07-29 19:07] LABS: ALKALINE PHOSPHATASE 113 U/L (46-116); ALT/SGPT 45 U/L (7.0-40); AST/SGOT 99 U/L (<34); BLOOD UREA NITROGEN 6 MG/DL (9-23); CALCIUM LEVEL 8.7 MG/DL (8.5-10.1); CARBON DIOXIDE LEVEL 24 MMOL/L (20-31); CHLORIDE LEVEL 106 MMOL/L (98-107); CREATININE FOR GFR 0.63 MG/DL (0.70-1.30); GLOMERULAR FILTRATION RATE > 60.0 (>60); GLUCOSE, FASTING 91 MG/DL (60-100); LIPASE 69 U/L (12-53); SODIUM LEVEL 137 MMOL/L (136-145); TOTAL PROTEIN 8.2 G/DL (5.7-8.2)
[2022-07-29 19:14] LABS: D-DIMER QUANT > 4000 ng/ml (<500)
[2022-07-29 19:16] LABS: ERYTHROCYTE SEDIMENTATION RATE 6 mm/hr (0-15)
[2022-07-29] MEDS ORDERED: ISOVUE-370 76% 100ML VIAL As Ordered ONE (19:20)
[2022-07-29] MEDS: ADVAIR HFA 115/21MCG INHALER INH SCH (20:00)
[2022-07-29] MEDS ORDERED: HOME MED LIST COMPLETE! XX SCH (21:35)
[2022-07-29] MEDS ORDERED: hydrOXYzine 50 MG TAB PO ONE (22:15)
[2022-07-29] MEDS ORDERED: BENZONATATE 100MG CAPSULE PO PRN (22:15)
[2022-07-30 00:10] VITALS: BP 141/67
[2022-07-30 06:00] VITALS: BP 137/67
[2022-07-30 06:11] LABS: HEMATOCRIT 43.2 % (42.0-52.0); MEAN CORPUSCULAR HEMOGLOBIN 31.1 pg (27.0-33.0); MEAN CORPUSCULAR VOLUME 91.3 fl (80.0-96.0); PLATELET COUNT, AUTOMATED 102 10^3/uL (150-450); RED BLOOD COUNT 4.73 10^6/uL (4.30-6.10); WHITE BLOOD COUNT 5.1 10^3/uL (4.0-10.0)
[2022-07-30 06:21] LABS: HEMOGLOBIN 14.7 g/dl (13.5-17.5); INR 1.17; PROTHROMBIN TIME 15.1 SECONDS (12.5-14.5)
[2022-07-30 06:22] LABS: PARTIAL THROMBOPLASTIN TIME 32.4 SECONDS (24.8-34.2)
[2022-07-30 06:38] LABS: BLOOD UREA NITROGEN 11 MG/DL (9-23); CALCIUM LEVEL 8.7 MG/DL (8.5-10.1); CARBON DIOXIDE LEVEL 22 MMOL/L (20-31); CHLORIDE LEVEL 111 MMOL/L (98-107); CREATININE FOR GFR 0.61 MG/DL (0.70-1.30); GLOMERULAR FILTRATION RATE > 60.0 (>60); GLUCOSE, FASTING 99 MG/DL (60-100); SODIUM LEVEL 143 MMOL/L (136-145)
[2022-07-30] MEDS: ADVAIR HFA 115/21MCG INHALER INH SCH ×2 (07:42→19:55)
[2022-07-30] MEDS ORDERED: TIOTROPIUM INHALER/CAPSULE (SPIRIVA) INH SCH (08:00)
[2022-07-30 09:00] VITALS: O2SAT 95
[2022-07-30] MEDS ORDERED: busPIRone 5 MG TAB PO SCH (09:00)
[2022-07-30] MEDS ORDERED: LORazepam 0.5 MG TAB PO ONE (11:05)
[2022-07-30] MEDS ORDERED: propofoL 200 MG/20 ML VIAL As Ordered ONE ×2 (13:11→15:25)
[2022-07-30] MEDS ORDERED: LIDOCAINE 2% 100MG/5ML SDV (FOR ANES.) As Ordered ONE (13:11)
[2022-07-30] MEDS ORDERED: fentaNYL 100 MCG/2 ML INJECTION As Ordered ONE (13:12)
[2022-07-30 14:30] VITALS: BP 137/80
[2022-07-30] MEDS ORDERED: fentaNYL 100 MCG/2 ML INJECTION IV PRN (15:40)
[2022-07-30] MEDS ORDERED: ONDANSETRON 4MG 2ML VIAL IV PRN (15:40)
[2022-07-30] MEDS ORDERED: LR 1,000 ML IV SCH (15:40)
[2022-07-30 15:55] VITALS: BP 132/71
[2022-07-30] MEDS ORDERED: BENZ-18 PO (19:37)
[2022-07-30] MEDS ORDERED: TIOT18INH INH (19:37)
== END 2022-07-30 20:22 | disposition home or self-care (01) ==
LOC: M ED 14:11 → EEVIPCON 14:12 → M ED INP 14:12 → ENRESERV 23:54 → M MS5PR 07-30 00:10
PROVIDERS: ADMIT Internal Medicine; ATTEND Internal Medicine
DX: K70.30 Alcoholic cirrhosis of liver without ascites (principal); I85.10 Secondary esophageal varices without bleeding; R04.2 Hemoptysis; F41.9 Anxiety disorder, unspecified; F32.9 Major depressive disorder, single episode, unspecified; J44.9 Chronic obstructive pulmonary disease, unspecified; K76.6 Portal hypertension; K57.90 Diverticulosis of intestine, part unspecified, without perforation or abscess without bleeding; Z79.899 Other long term (current) drug therapy; Z79.51 Long term (current) use of inhaled steroids; Z87.891 Personal history of nicotine dependence
CPT/HCPCS: 36415; 43235; 71275; 74177; 78582; 80048; 80076; 83690; 84132; 85025; 85027; 85379; 85610; 85652; 85730; 86140; 87486; 87581; 87633; 87641; 87798; 93970; 93971; 94640; 99284; A9540; A9567; J3010

== ENCOUNTER → 2022-11-03 | Outpatient (CLI) | payer OTHER ==
[~2022-11-03] MED LIST changes: +BENZ-18 PO; +BUSP5TA PO; +TIOT18INH INH; +TREL1AER INH
== END ==
LOC: M OUTALCOH 07:39
PROVIDERS: ATTEND Psychiatry & Neurology Psychiatry
DX: Z03.89 Encounter for observation for other suspected diseases and conditions ruled out (principal)

== ENCOUNTER → 2023-06-22 | Outpatient (CLI) | payer OTHER ==
[~2023-06-22] MED LIST changes: -GABA-283 PO; +GABA-284 PO
== END ==
LOC: M RAD 07:07
PROVIDERS: ATTEND Internal Medicine Gastroenterology
DX: K74.60 Unspecified cirrhosis of liver (principal)

== ENCOUNTER → 2023-06-29 | Outpatient (REF) | LOC: M PLAIMG 11:54 | PROVIDERS: ATTEND Internal Medicine | DX: R52 Pain, unspecified (principal) ==

== ENCOUNTER 2023-07-29 13:22 | Day surgery (SDC) | payer MEDICAID, OTHER ==
[~2023-07-29] VITALS: Ht 170.2 cm; Wt 151.8 kg
[~2023-07-29 13:22] MED LIST changes: +LIDOCAINE 2% 100MG/5ML SDV (FOR ANES.) As Ordered ONE; +NS 1,000 ML IV ONE; +PROA1AER2 IN; +XANA0.25 PO; +propofoL 200 MG/20 ML VIAL As Ordered ONE
[2023-07-29] MEDS ORDERED: fentaNYL 100 MCG/2 ML INJECTION As Ordered ONE (14:25)
[2023-07-29] MEDS ORDERED: propofoL 200 MG/20 ML VIAL As Ordered ONE (14:45)
[2023-07-29 14:55] VITALS: TEMP 97.1
[2023-07-29 15:19] VITALS: BP 130/61; O2SAT 95
== END 2023-07-29 15:35 | disposition home or self-care (01) ==
LOC: M OPP 13:22
PROVIDERS: ATTEND Internal Medicine Gastroenterology
DX: I85.00 Esophageal varices without bleeding (principal); K31.89 Other diseases of stomach and duodenum; K29.70 Gastritis, unspecified, without bleeding; Z13.810 Encounter for screening for upper gastrointestinal disorder; F17.200 Nicotine dependence, unspecified, uncomplicated; Z79.51 Long term (current) use of inhaled steroids; Z79.899 Other long term (current) drug therapy
CPT/HCPCS: 43239; 88305; J3010